=== PATIENT | male | born 1965 | race Hispanic/Latino ===

== ENCOUNTER 2016-10-27 22:30 | Inpatient (IN) | payer MEDICAID ==
--- NOTE | 2016-10-27 22:51 | ED PDOC ---
Arrival/HPI - General Chief Complaint: GI Problem Time Seen by Provider: 10/27/16 22:46 Historian: Patient - History of Present Illness Narrative History of Present Illness (Text): 10/27/16 22:51 Ishmael Dickey is a 51 year old male, whose past medical history includes kidney stones, who presents to the Emergency department complaining of lower abdominal pain radiating to back since 15:00 today. Patient also reports associated nausea and vomiting. Patient states symptoms are similar to previous episodes of kidney stones. Patient denies any fever, chills, chest pain, shortness of breath, diarrhea, urinary symptoms, back pain, neck pain, headache, dizziness, or any other complaints. Time/Duration: 4-6 hours (15:00 today) Symptom Onset: Gradual Symptom Course: Unchanged Activities at Onset: Light Context: Home Past Medical History - Provider Review Nursing Documentation Reviewed: Yes - Infectious Disease Hx of Infectious Diseases: None - Tetanus Immunization Tetanus Immunization: Unknown - Cardiac Hx Hypertension: Yes - Pulmonary Hx Asthma: No Hx Bronchitis: No Hx Chronic Obstructive Pulmonary Disease (COPD): No Hx Emphysema: No - Neurological Hx Alzheimer's Disease: No HX Cerebrovascular Accident: No Hx Dementia: No Hx Migraine: No Hx Parkinson's Disease: No Hx Seizures: No Hx Transient Ischemic Attacks (TIA): No - HEENT Hx HEENT Disorder: No Hx Blind: No Hx Cataracts: No Hx Deafness: No Hx Difficulty Chewing: No Hx Epistaxis: No Hx Glaucoma: No Hx Macular Degeneration: No - Renal Hx Renal Failure: No - Endocrine/Metabolic Hx Hyperthyroidism: No Hx Hypothyroidism: No - Hematological/Oncological Hx Anemia: No Hx Cancer: No Hx Hepatitis A: No Hx Hepatitis B: No Hx Hepatitis C: No - Integumentary Hx Dermatological Disorder: No Hx Basal Cell Carcinoma: No Hx Eczema: No Hx Melanoma: No Hx Psoriasis: No Hx Squamous Cell Carcinoma: No - Musculoskeletal/Rheumatological Hx Arthritis: No - Gastrointestinal Hx Crohn's Disease: No Hx Diverticulitis: No Hx Gastroesophageal Reflux: No Hx Gastrointestinal Ulcer: Yes Hx Liver Failure: No - Genitourinary/Gynecological Hx Genitourinary Disorders: No Hx Hematuria: No Hx Incontinence: No Hx Prostate Problems: No Hx Sexually Transmitted Diseases: No Hx Urinary Tract Infection: No - Psychiatric Hx Depression: No Hx Emotional Abuse: No Hx Physical Abuse: No Hx Substance Use: Yes - Surgical History Hx Amputation: No Hx Appendectomy: No Hx Cholecystectomy: No Hx Coronary Stent: No - Anesthesia Hx Anesthesia: No - Suicidal Assessment Feels Threatened In Home Enviroment: No Family/Social History - Physician Review Nursing Documentation Reviewed: Yes Family/Social History: No Known Family HX Smoking Status: Current Some Days Smoker Hx Alcohol Use: Yes Hx Substance Use: Yes Hx Substance Use Treatment: Yes Allergies/Home Meds Allergies/Adverse Reactions: Allergies No Known Allergies Allergy (Verified 12/07/12 21:48) Home Medications: Home Meds Medication Instructions Recorded Confirmed Lisinopril 10 mg PO DAILY 04/23/13 10/27/16 Atorvastatin [Lipitor] 20 mg PO DAILY 08/15/15 10/27/16 Morphine Sulfate [Ms Contin] 30 mg PO DAILY 10/27/16 10/27/16 oxyCODONE [oxyCODONE Immediate 30 mg PO QID 10/27/16 10/27/16 Release Tab] Review of Systems - Physician Review All systems were reviewed & negative as marked: Yes - Review of Systems Constitutional: Normal. absent: Fevers Eyes: Normal ENT: Normal Respiratory: Normal. absent: SOB, Cough Cardiovascular: Normal Gastrointestinal: Abdominal Pain, Nausea, Vomiting. absent: Diarrhea Genitourinary Male: Normal. absent: Dysuria, Frequency, Hematuria, Urinary Output Changes Musculoskeletal: Back Pain. absent: Neck Pain Skin: Normal. absent: Rash Neurological: Normal. absent: Headache, Dizziness Endocrine: Normal Hemo/Lymphatic: Normal Psychiatric: Normal Physical Exam Vital Signs Reviewed: Yes Vital Signs Temp Pulse Resp BP Pulse Ox 10/27/16 22:49 97.4 F L 70 18 180/102 H 100 Temperature: Afebrile Blood Pressure: Hypertensive Pulse: Regular Respiratory Rate: Normal Appearance: Positive for: Well-Appearing, Non-Toxic, Comfortable Pain Distress: None Mental Status: Positive for: Alert and Oriented X 3 - Systems Exam Head: Present: Atraumatic, Normocephalic Pupils: Present: PERRL Extroacular Muscles: Present: EOMI Conjunctiva: Present: Normal Mouth: Present: Moist Mucous Membranes Neck: Present: Normal Range of Motion Respiratory/Chest: Present: Clear to Auscultation, Good Air Exchange. No: Respiratory Distress, Accessory Muscle Use Cardiovascular: Present: Regular Rate and Rhythm, Normal S1, S2. No: Murmurs Abdomen: Present: Normal Bowel Sounds. No: Tenderness, Distention, Peritoneal Signs Back: Present: Normal Inspection. No: CVA Tenderness, Midline Tenderness, Paraspinal Tenderness Upper Extremity: Present: Normal Inspection. No: Cyanosis, Edema Lower Extremity: Present: Normal Inspection. No: Edema Neurological: Present: GCS=15, CN II-XII Intact, Speech Normal Skin: Present: Warm, Dry, Normal Color. No: Rashes Psychiatric: Present: Alert, Oriented x 3, Normal Insight, Normal Concentration Medical Decision Making ED Course and Treatment: 10/27/16 22:51 Impression: 51 year old male complaining of lower abdominal pain radiating to back, nausea, and vomiting Plan: -- CT Abdomen and Pelvis w/o contrast -- EKG -- Labs, lipase -- Urinalysis -- IV fluids -- Toradol -- Zofran -- Reassess and disposition Prior Visits: Notes and results from previous visits were reviewed. Progress Notes: Reviewed EKG, NSR at [address]pm[address] LVH. Non-specific ST/T wave changes. 10/28/16 00:55 Reviewed radiology, CT Abdomen and Pelvis shows: Bilateral nonobstructing renal stones, no ureteral stones or hydronephrosis; fatty liver; possible gallstones; 5 mm left lower lobe pulmonary nodule, nodule has been described in multiple prior reports dating back to 2013 Additional findings as described above. 10/28/16 01:[address] 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 House physician notified. 10/28/16 01:[address] Eloina Liu, who is aware and agrees with plan. Accepts pt in to hospitalist service. Pt will go to [facility] observation for intractable nausea/vomiting. - Lab Interpretations Lab Results: 10/27/16 23:40 10/27/16 23:40 Lab Results 10/27/16 23:40: WBC 6.0, RBC 4.54, Hgb 15.0, Hct 41.4 L, MCV 91.2, MCH 33.0, MCHC 36.2, RDW 12.6, Plt Count 250, MPV 10.1 10/27/16 23:40: Sodium 135, Potassium 4.3, Chloride 100, Carbon Dioxide 20 L, Anion Gap 19, BUN 9, Creatinine 0.7, Est GFR ( Amer) > 60, Est GFR (Non- Af Amer) > 60, Random Glucose 131 H, Calcium 10.1, Total Bilirubin 1.0, AST 69 H , ALT 126 H, Alkaline Phosphatase 81, Total Protein 8.7 H, Albumin 4.9 H, Globulin 3.8, Albumin/Globulin Ratio 1.3, Lipase 83 I have reviewed the lab results: Yes - RAD Interpretation Radiology Orders: 10/27/16 22:53 ABD & PELVIS W/O PO OR IV CONT [CT] 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 - EKG Interpretation Interpreted by ED Physician: Yes Type: 12 lead EKG - Medication Orders Current Medication Orders: Atorvastatin Calcium (Lipitor) 20 mg PO 1700 [facility] Last Admin: 10/28/16 17:32 Dose: 20 mg Clonidine HCl (Catapres) 0.1 mg PO BID PRN PRN Reason: Systolic Blood Pressure Dextrose/Sodium Chloride (Dextrose 5%/0.9% Ns 1000 Ml) 1,000 mls @ 125 mls/hr IV .Q8H [facility] Last Admin: 10/28/16 12:07 Dose: 125 mls/hr Lisinopril (Zestril) 10 mg PO DAILY J[facility] Lorazepam (Ativan) 1 mg IVP Q4H PRN; Protocol PRN Reason: Anxiety Last Admin: 10/28/16 14:06 Dose: 1 mg Re-Assess: Reassess Psych Meds Document 10/28/16 14:36 NB (Rec: 10/28/16 15:36 NB [id number]) Reassess Psych Med Ineffective-LIP notifed Lorazepam (Ativan) 2 mg IVP Q6H PRN; Protocol PRN Reason: Anxiety Ondansetron HCl (Zofran Inj) 4 mg IVP Q4 [facility] Last Admin: 10/28/16 16:36 Dose: 4 mg Pantoprazole Sodium (Protonix Inj) 40 mg IVP DAILY [facility] Last Admin: 10/28/16 09:57 Dose: 40 mg Promethazine HCl (Phenergan Inj) 25 mg IM Q6H PRN PRN Reason: Nausea/Vomiting Last Admin: 10/28/16 05:52 Dose: 25 mg Discontinued Medications Clonidine HCl (Catapres) 0.1 mg PO STAT STA Stop: 10/28/16 15:58 Last Admin: 10/28/16 16:36 Dose: 0.1 mg Diphenhydramine HCl (Benadryl) 25 mg IVP ONCE ONE Stop: 10/28/16 00:58 Last Admin: 10/28/16 01:08 Dose: 25 mg Hydromorphone HCl (Dilaudid) 1 mg IVP STAT STA Stop: 10/28/16 01:05 Last Admin: 10/28/16 02:04 Dose: 1 mg Hydromorphone HCl (Dilaudid) 1 mg IVP Q4H PRN PRN Reason: Pain, severe (8-10) Last Admin: 10/28/16 07:05 Dose: 1 mg Sodium Chloride (Sodium Chloride 0.9%) 1,000 mls @ 999 mls/hr IV .Q1H1M STA Stop: 10/27/16 23:54 Last Admin: 10/27/16 23:43 Dose: 999 mls/hr Ketorolac Tromethamine (Toradol) 30 mg IVP ONCE ONE Stop: 10/27/16 22:55 Last Admin: 10/27/16 23:42 Dose: 30 mg Lorazepam (Ativan) 1 mg IVP ONCE ONE PRN Reason: Protocol Stop: 10/28/16 15:58 Last Admin: 10/28/16 16:35 Dose: 1 mg Metoclopramide HCl (Reglan) 10 mg IVP ONCE ONE Stop: 10/28/16 00:58 Last Admin: 10/28/16 01:08 Dose: 10 mg Ondansetron HCl (Zofran Inj) 4 mg IVP ONCE ONE Stop: 10/27/16 22:55 Last Admin: 10/27/16 23:43 Dose: 4 mg Ondansetron HCl (Zofran Inj) Confirm Administered Dose 4 mg .ROUTE .STK-MED ONE Stop: 10/27/16 23:51 Last Admin: 10/28/16 00:09 Dose: Ondansetron HCl (Zofran Inj) 4 mg IVP ONCE ONE Stop: 10/28/16 00:04 Last Admin: 10/28/16 00:08 Dose: 4 mg Ondansetron HCl (Zofran Inj) 4 mg IVP Q6H PRN PRN Reason: Nausea/Vomiting Last Admin: 10/28/16 05:01 Dose: 4 mg Pantoprazole Sodium (Protonix Inj) 40 mg IVP STAT STA Stop: 10/28/16 02:40 Last Admin: 10/28/16 03:19 Dose: 40 mg - Maritzaibvira Statement The provider has reviewed the documentation as recorded by the Maritzaibvira Schreiber All medical record entries made by the Maritzaibvira were at my direction and personally dictated by me. I have reviewed the chart and agree that the record accurately reflects my personal performance of the history, physical exam, medical decision making, and the department course for this patient. I have also personally directed, reviewed, and agree with the discharge instructions and disposition. Disposition/Present on Arrival - Present on Arrival Any Indicators Present on Arrival: No History of DVT/PE: No History of Uncontrolled Diabetes: No Urinary Catheter: No History of Decub. Ulcer: No History Surgical Site Infection Following: None - Disposition Have Diagnosis and Disposition been Completed?: Yes Diagnosis: Abdominal pain, Flank pain, Intractable vomiting Disposition: HOSPITALIZED Disposition Time: 01:17 Patient Plan: Observation Patient Problems: Current Active Problems Problem Status Onset Abdominal pain Acute Flank pain Acute Intractable vomiting Acute Condition: STABLE
[2016-10-27] MEDS ORDERED: Sodium Chloride 0.9% 1,000 ML IV STA (22:54)
[2016-10-27 23:54] LABS: HEMATOCRIT 41.4 % (42.0-52.0); MEAN CELL VOLUME 91.2 fL (80.0-105.0); MEAN CORPUSCULAR HGB CONC 36.2 g/dl (31.0-37.0); MEAN PLATELET VOLUME 10.1 fl (7.0-11.0); RED CELL DISTRIBUTION WIDTH 12.6 % (11.5-14.5)
[2016-10-27 23:58] LABS: ALB/GLOB RATIO 1.3 (1.1-1.8); ALKALINE PHOSPHATASE 81 U/L (38-133); ALT/SGPT 126 U/L (7-56); AST/SGOT 69 U/L (15-59); BLOOD UREA NITROGEN 9 mg/dL (7-21); CALCIUM 10.1 mg/dL (8.4-10.5); CARBON DIOXIDE 20 mmol/L (21-33); CHLORIDE 100 mmol/L (95-110); GFR AFRICAN-AMERICAN > 60; GLUCOSE,RANDOM 131 mg/dL (70-110); LIPASE 83 U/L (23-300); POTASSIUM 4.3 mmol/L (3.6-5.0); SODIUM 135 mmol/L (132-148); TOTAL PROTEIN 8.7 g/dL (5.8-8.3)
--- NOTE | 2016-10-28 00:49 | CT ---
EXAM: CT Abdomen and Pelvis Without Intravenous Contrast CLINICAL HISTORY: 51 years old, male; Pain; Abdominal pain; Generalized; Additional info: Flank pain/abdominal pain TECHNIQUE: Axial computed tomography images of the abdomen and pelvis without intravenous contrast. This CT exam was performed using one or more of the following dose reduction techniques: automated exposure control, adjustment of the mA and/or kV according to patient size, and/or use of iterative reconstruction technique. Coronal and sagittal reformatted images were created and reviewed. EXAM DATE/TIME: 10/27/2016 10:53 PM COMPARISON: CT - ABD PELVIS W/O PO or IV CONT 09/28/2011 7:18:[address] abdomen pelvis 06/05/13, 04/23/13 and 03/31/13 not available comparison. Correlation is made with report dated 03/31/13 FINDINGS: Lower thorax: Heart size is normal. There is dependent atelectasis at the lung bases. There is scarring at the lung bases. There is a 5 mm left lower lobe pulmonary nodule. There is a small hiatal hernia. ABDOMEN: Liver: There is fatty infiltration of the liver. Gallbladder and bile ducts: Gallbladder is partially distended. Attenuation suggest gallstones or sludge. Common bile duct is unremarkable. Pancreas: Pancreas is mildly atrophic. Spleen: unremarkable Adrenals: There is adrenal thickening right greater than left. Kidneys and ureters: There are bilateral nonobstructing renal stones. There are no ureteral stones. There is no pelvocaliectasis or ureterectasis. Stomach and bowel: Stomach is partially distended. Rotation is normal. There is no obstruction. Small bowel is mildly distended with air and fluid. Distention decreases distally. Terminal ileum is unremarkable. Appendix is unremarkable.Colon is incompletely distended which limits evaluation. Appendix: See stomach and bowel PELVIS: Bladder: unremarkable Reproductive: Prostate is mildly enlarged. Seminal vesicles are unremarkable. ABDOMEN and PELVIS: Intraperitoneal space: There is no free air or free fluid. Bones/joints: There are degenerative changes in the osseus structures. Soft tissues: unremarkable Vasculature: There are vascular calcifications. There are multiple phleboliths in the pelvis. Lymph nodes: There is shotty adenopathy. IMPRESSION: Bilateral nonobstructing renal stones, no ureteral stones or hydronephrosis; fatty liver; possible gallstones; 5 mm left lower lobe pulmonary nodule, nodule has been described in multiple prior reports dating back to 2013 Additional findings as described above.
[2016-10-28] MEDS ORDERED: DiphenhydrAMINE 50 mg/ml Inj IVP ONE (00:57)
[2016-10-28] MEDS ORDERED: HYDROmorphone 1 mg/ml ISec IVP STA (01:04)
[2016-10-28] MEDS ORDERED: HYDROmorphone 1 mg/ml ISec IVP PRN (02:33)
[2016-10-28] MEDS: Dextrose 5%/0.9% NS 1,000 ML IV SCH ×3 (02:36→20:25)
--- NOTE | 2016-10-28 02:40 | CP.PCM.HP ---
<Pranay Degroot - Last Filed: 10/28/16 02:35> History of Present Illness - History of Present Illness History of Present Illness: Pranay Degroot D.O. PGY-1, Internal Medicine Resident, Night Float Admission Note CC: nausea and intractable vomiting since 3pm 10/27/16 51 year old male with a PMH of drug abuse per chart review and nephrolithiasis who [place] [facility] [place] with complaints of intractable vomiting. Patient states that it came out of nowhere, was not associated with any food ingestion, and has continued to get worse since then, associated with abdominal pain that he states is diffuse, 10/10, actively writhing in pain, with two buckets of bilious but non-bloody emesis at bedside, noted no aggravating or alleviating factors, also has associated "cold/hot feeling." Patient states only other time he's had similar symptoms was due to his kidney stone which was about 1 year ago. Patient otherwise denies any other symptoms. PMD: denied PMH: as above PSH: lithotripsy SH: 1ppd x ~30 years for 30 pack years, "sporadic" alcohol, denied drug abuse FH: denied Meds: reviewed Allergies: NKA Present on Admission - Present on Admission Any Indicators Present on Admission: No Review of Systems - Constitutional Constitutional: Chills, Fever - EENT Eyes: absent: Blind Spots, Blurred Vision Ears: absent: Decreased Hearing, Ear Discharge, Ear Pain, Tinnitus Nose/Mouth/Throat: absent: Epistaxis, Nasal Trauma, Dry Mouth - Cardiovascular Cardiovascular: absent: Chest Pain, Leg Edema, Palpitations - Respiratory Respiratory: absent: Cough, Dyspnea, Hemoptysis - Gastrointestinal Gastrointestinal: Abdominal Pain, Nausea, Vomiting. absent: Constipation, Diarrhea - Genitourinary Genitourinary: absent: Dysuria, Hematuria - Musculoskeletal Musculoskeletal: absent: Abnormal Gait, Arthralgias, Atrophy - Integumentary Integumentary: absent: Pruritus, Rash, Unusual Bruising - Neurological Neurological: absent: Abnormal Speech, Convulsions, Dizziness, Memory Loss Past Patient History - Infectious Disease Hx of Infectious Diseases: None - Tetanus Immunizations Tetanus Immunization: Unknown - Past Social History Smoking Status: Current Some Days Smoker - CARDIAC Hx Hypertension: Yes - PULMONARY Hx Asthma: No Hx Bronchitis: No Hx Chronic Obstructive Pulmonary Disease (COPD): No Hx Emphysema: No - NEUROLOGICAL Hx Alzheimer's Disease: No HX Cerebrovascular Accident: No Hx Dementia: No Hx Migraine: No Hx Parkinson's Disease: No Hx Seizures: No Hx Transient Ischemic Attacks (TIA): No - HEENT Hx HEENT Problems: No Hx Blind: No Hx Cataracts: No Hx Deafness: No Hx Difficulty Chewing: No Hx Epistaxis: No Hx Glaucoma: No Hx Macular Degeneration: No - RENAL Hx Renal Failure: No - ENDOCRINE/METABOLIC Hx Hyperthyroidism: No Hx Hypothyroidism: No - HEMATOLOGICAL/ONCOLOGICAL Hx Anemia: No Hx Cancer: No Hx Hepatitis A: No Hx Hepatitis B: No Hx Hepatitis C: No - INTEGUMENTARY Hx Dermatological Problems: No Hx Basil Cell: No Hx Eczema: No Hx Melanoma: No Hx Psoriasis: No Hx Squamous Cell: No - MUSCULOSKELETAL/RHEUMATOLOGICAL Hx Arthritis: No - GASTROINTESTINAL Hx Crohn's Disease: No Hx Diverticulitis: No Hx Gastroesophageal Reflux: No Hx Liver Failure: No - GENITOURINARY/GYNECOLOGICAL Hx Genitourinary Disorders: No Hx Hematuria: No Hx Incontinence: No Hx Prostate Problems: No Hx Sexually Transmitted Disorders: No Hx Urinary Tract Infection: No - PSYCHIATRIC Hx Depression: No Hx Emotional Abuse: No Hx Physical Abuse: No Hx Substance Use: Yes - SURGICAL HISTORY Hx Amputation: No Hx Appendectomy: No Hx Cholecystectomy: No Hx Coronary Stent: No - ANESTHESIA Hx Anesthesia: No Meds Allergies/Adverse Reactions: Allergies Allergy/AdvReac Type Severity Reaction Status Date / Time No Known Allergies Allergy Verified 12/07/12 21:48 Physical Exam - Constitutional Additional comments: well developed, unkempt, well nourished male, appears older than stated age, appears tremulous - Head Exam Head Exam: ATRAUMATIC - Eye Exam Eye Exam: EOMI, PERRL - ENT Exam ENT Exam: Mucous Membranes Dry, Normal Oropharynx - Neck Exam Neck exam: Negative for: Lymphadenopathy, Meningismus, Thyromegaly - Respiratory Exam Respiratory Exam: Clear to Auscultation Bilateral. absent: Rales, Rhonchi, Wheezes - Cardiovascular Exam Cardiovascular Exam: RRR, +S1, +S2. absent: Diastolic murmur, Gallop, Rubs, Systolic Murmur - GI/Abdominal Exam GI & Abdominal Exam: Guarding (voluntary diffuse), Normal Bowel Sounds, Tenderness (diffuse). absent: Distended - Extremities Exam Extremities exam: Positive for: normal capillary refill, pedal pulses present. Negative for: calf tenderness, pedal edema, tenderness - Back Exam Back exam: absent: CVA tenderness (L), CVA tenderness (R), paraspinal tenderness , vertebral tenderness - Neurological Exam Neurological exam: Alert, Oriented x3 - Skin Skin Exam: Dry, Intact, Warm Results - Vital Signs Recent Vital Signs: Last Vital Signs Temp 97.4 F L 10/27/16 22:49 Pulse 70 10/27/16 22:49 Resp 18 10/27/16 22:49 BP 180/102 H 10/27/16 22:49 Pulse Ox 100 10/27/16 22:49 - Labs Result Diagrams: 10/27/16 23:40 10/27/16 23:40 Assessment & Plan - Assessment and Plan (Free Text) Assessment: 51 year old male with a PMH of drug abuse per chart review and nephrolithiasis who presents with complaints of intractable vomiting. Plan: 1. Intractable vomiting Placed in obs Likely 2/2 drug abuse vs GB etiology vs nephrolithiasis (although unlikely nephrolithiasis, stones are non-obstructing) Continue with dilaudid 1q4 PRN No NSAIDs due to GI issues Continue with protonix 40 CT abd and pelvis reviewed by myself as well as official read Will consult GI given GB sludge and hold from surgery at this time as not indicated Continue with PRN zofran Also back up IM promethazine PRN Monitoring closely Will get lipid and liver panel and follow up tomorrow AM 2. Transaminitis Possibly from vomiting vs GB disease as mentioned above vs alcohol related vs drug related Pending drug screen GI consulted 3. Hx of substance abuse Will also order urine drug screen DVT ppx: SCDs Patient was seen and examined at bedside and case was discussed at length with attending physician. - Date & Time Date: 10/28/16 Time: 02:15 <Huy Liu - Last Filed: 10/30/16 18:54> Results - Vital Signs Recent Vital Signs: Last Vital Signs Temp 97.9 F 10/30/16 00:00 Pulse 75 10/30/16 10:00 Resp 22 10/30/16 05:20 BP 152/75 H 10/30/16 17:25 Pulse Ox 100 10/30/16 05:20 - Labs Result Diagrams: 10/30/16 05:35 10/30/16 05:35 Labs: Laboratory Results - last 24 hr 10/30/16 10/30/16 05:35 05:35 WBC 8.2 D RBC 4.88 Hgb 16.1 Hct 44.8 MCV 91.8 MCH 33.0 MCHC 35.9 RDW 12.2 Plt Count 190 MPV 10.4 Gran % 71.6 H Lymph % (Auto) 19.0 L [place] % (Auto) 9.2 H Eos % (Auto) 0.1 L Baso % (Auto) 0.1 Gran # 5.86 Lymph # 1.6 [place] # 0.8 H Eos # 0.0 Baso # 0.01 Sodium 139 Potassium 3.1 L Chloride 101 Carbon Dioxide 26 Anion Gap 15 BUN 15 Creatinine 0.6 Est GFR ( Amer) > 60 Est GFR (Non-Af Amer) > 60 Random Glucose 127 H Calcium 9.7 Phosphorus 4.1 Magnesium 2.1 Total Bilirubin 1.6 H AST 50 ALT 93 H Alkaline Phosphatase 61 Total Protein 8.2 Albumin 4.5 Globulin 3.7 Albumin/Globulin Ratio 1.2
[2016-10-28 04:35] LABS: URINE BILIRUBIN NEGATIVE (NEGATIVE); URINE BLOOD NEGATIVE (NEGATIVE); URINE GLUCOSE (UA) NEGATIVE (NEGATIVE); URINE KETONE 40 mg/dL (NEGATIVE); URINE LEUKOCYTE ESTERASE NEGATIVE Leu/uL (NEGATIVE); URINE PROTEIN TRACE mg/dL (<30 mg/dL); URINE UROBILINOGEN 0.2 E.U./dL (<1 E.U./dL)
[2016-10-28 04:41] LABS: URINE APPEARANCE CLEAR (CLEAR); URINE COLOR YELLOW (YELLOW)
[2016-10-28 05:00] VITALS: BMI 24.4
[2016-10-28 05:09] LABS: URINE EPITHELIAL CELLS 0 - 2 /hpf (0-5); URINE RBC 0 - 2 /hpf (0-2); URINE WBC 0 - 2 /hpf (0-6)
[2016-10-28 07:13] LABS: ALB/GLOB RATIO 1.3 (1.1-1.8); BILIRUBIN,DIRECT 0.5 mg/dL (0.0-0.4); BILIRUBIN,TOTAL 1.2 mg/dL (0.2-1.3); TOTAL PROTEIN 8.6 g/dL (5.8-8.3)
--- NOTE | 2016-10-28 11:23 | US ---
HISTORY: r/o gall stones COMPARISON: None. TECHNIQUE: Sonographic evaluation of the abdomen. FINDINGS: LIVER: Measures 15.7 x 11.2 x 10.8 cm. Increased echogenicity of the liver parenchyma. No mass. No intrahepatic bile duct dilatation. GALLBLADDER: Unremarkable. No gallstones. COMMON BILE DUCT: Measures 5 mm. No stones. No dilatation. PANCREAS: Unremarkable as visualized. No mass. No ductal dilatation. RIGHT KIDNEY: Measures 12.7 x 4.8 x 6.2cm. Normal echogenicity. No calculus, mass, or hydronephrosis. LEFT KIDNEY: Measures 13.2 x 6.1 x 6.5cm. Normal echogenicity. No calculus, mass, or hydronephrosis. SPLEEN: Normal in size and contour. No mass. AORTA: No aneurysmal dilatation. IVC: Unremarkable. OTHER FINDINGS: None. IMPRESSION: No gallbladder pathology noted. Diffuse increased liver echogenicity -diffuse fatty infiltration or other liver diffuse parenchymal pathology suggested.
[2016-10-28] MEDS ORDERED: LISINOPRIL 10 MG PO SCH (13:45)
--- NOTE | 2016-10-28 19:43 | CON ---
DATE: 10/28/2016 Seen and examined at the bedside earlier this afternoon. REQUEST FOR CONSULT: Intractable vomiting, gallbladder sludge. HISTORY OF PRESENT ILLNESS: This is a 51-year-old male with a past medical history of hypertension, hyperlipidemia who comes to the Emergency Room with complaints of intractable vomiting. The patient states it was a sudden onset that started yesterday. He recalls having a bagel from the bagel store. He denies any hematemesis or any coffee-ground vomitus. He does not recall any other contributing factors. He states that he had numerous vomitus, complaint of abdominal discomfort. Does not compla in of any fevers, but does complain of chills. He had a CT scan of abdomen and pelvis without contra st on admission, which reports bilateral nonobstructing renal stones, possible gallstones and fatty l iver and sludge. PAST MEDICAL HISTORY: As stated above, hypertension and hyperlipidemia. Per chart, patient has hist ory of drug abuse. PAST SURGICAL HISTORY: Lithotripsy. The patient states he had an endoscopy about 6 months ago at [facility] and was found to have gastritis. Never had a colonoscopy. FAMILY HISTORY: Denies. SOCIAL HISTORY: The patient is a current smoker. He states he drinks alcohol socially. His last in take was 3 days ago. He had beer. Denies any substance abuse. ALLERGIES: No known drug allergies. MEDICATIONS: Reviewed as per MAR. REVIEW OF SYSTEMS: Systems reviewed with positive findings, see HPI. VITAL SIGNS: Temperature is 99, blood pressure is 179/100, his pulse is 75, respirations 20, 97 on r oom air. LABORATORY DATA: WBC is 6.0, H and H is 15.0 and 41.4, platelets are 250. Chem: Sodium 135, K is 4. 3, BUN 9, creatinine 0.7. Total bilirubin 1.2, direct bilirubin is 0.6, AST 64, ALT 112, alkaline ph osphatase is 62. Lipase on admission was 83. Opiate screen is positive. His ultrasound was done an d that showed no gallstones. CBD measured 5 mm. No stones or dilatation. Pancreas was unremarkable. There is diffuse increased liver echogenicity, diffuse fatty liver or other liver diffuse parenchym al pathology suggested. A CT scan without contrast shows bilateral nonobstructing renal stones, no u reteral stones or hydronephrosis, fatty liver, possible gallstones. A 5 mm left lower lobe pulmonary nodule. Nodule has been described in multiple prior reports dating back to 2013. There is no stoma ch and bowel obstruction. Mildly distended with air and fluid. Terminal ileum is unremarkable. True endix is unremarkable. PHYSICAL EXAMINATION: HEENT: Sclerae are anicteric. NECK: Supple. CARDIAC: S1, S2. LUNGS: Decreased breath sounds with positive air entry. No rales or wheeze. NEUROLOGIC: Awake, alert. Face is flushed. Note some mild hand tremors. ASSESSMENT: This is a 51-year-old male with a history of hypertension, hyperlipidemia, came with com plaints of intractable vomiting, history of drug abuse, transaminitis. The patient is status post ul trasound. Negative for gallstones, common bile duct is 5 mm, possible fatty liver. Noted to have tr ansaminitis. May be secondary to gallbladder disease, although ultrasound showing no stones. May be related to alcohol versus drugs. PLAN: Trend LFTs. We will request for hepatitis panel. The patient is pending urine alcohol and dr law screen. Agree with clear liquid diet for now. Continue IV fluids. The patient is on Catapres. H e is on Ativan p.r.n. Continue PPI and Zofran. Thank you for this consult and allowing us to participate in your patient's care. We will make [facility] recommendations based upon patient's clinical course. The patient was seen and case discussed jax Quinn. Tiffanie MEDRANO cc: [id number] TT: 10/28/2016 19:42:34 Confirmation # [id number] Dictation # [id number] meryl
--- NOTE | 2016-10-28 21:49 | CARD ---
APPROVED REPORT EKG Measurement Heart [id number] CT 130P72 [id number] <Conclusion> Normal sinus rhythm with sinus arrhythmia Minimal voltage criteria for LVH, may be normal variant Prolonged QT Abnormal ECG
[2016-10-29] MEDS: Dexmedetomidine HCl 4mcg/ml 400 MCG/100 ML BOTTLE IV PRN ×2 (02:13→20:29)
[2016-10-29] MEDS: Dextrose 5%/0.9% NS 1,000 ML IV SCH ×2 (02:31→10:00)
--- NOTE | 2016-10-29 03:38 | CP.PCM.CON ---
<Daniel Cameron - Last Filed: 10/29/16 03:28> History of Present Illness - History of Present Illness History of Present Illness: ICU NIGHT RESIDENT CONSULT NOTE HPI: Pt is a 51 year old Caucaisan male with a PMHx of substance abuse who presented to the ED with intractable vomiting. ICU was consulted because pt was agitated, confused, and trying to break through leather restraints due to alcohol withdrawal. Pt had a CIWA score of 36 on the floors. ROS limited due to pt being confused and combative on the floors. Pt accepted and transferred to ICU. History unattainable due to pt being confused and agitated/ Review of Systems - Review of Systems Systems not reviewed;Unavailable: Altered Mental Status, Uncooperative Past Patient History - Infectious Disease Hx of Infectious Diseases: None - Tetanus Immunizations Tetanus Immunization: Unknown - Past Social History Smoking Status: Current Some Days Smoker - CARDIAC Hx Hypertension: Yes - PULMONARY Hx Asthma: No Hx Bronchitis: No Hx Chronic Obstructive Pulmonary Disease (COPD): No Hx Emphysema: No - NEUROLOGICAL Hx Alzheimer's Disease: No HX Cerebrovascular Accident: No Hx Dementia: No Hx Migraine: No Hx Parkinson's Disease: No Hx Seizures: No Hx Transient Ischemic Attacks (TIA): No - HEENT Hx HEENT Problems: No Hx Blind: No Hx Cataracts: No Hx Deafness: No Hx Difficulty Chewing: No Hx Epistaxis: No Hx Glaucoma: No Hx Macular Degeneration: No - RENAL Hx Renal Failure: No - ENDOCRINE/METABOLIC Hx Hyperthyroidism: No Hx Hypothyroidism: No - HEMATOLOGICAL/ONCOLOGICAL Hx Anemia: No Hx Cancer: No Hx Hepatitis A: No Hx Hepatitis B: No Hx Hepatitis C: No - INTEGUMENTARY Hx Dermatological Problems: No Hx Basil Cell: No Hx Eczema: No Hx Melanoma: No Hx Psoriasis: No Hx Squamous Cell: No - MUSCULOSKELETAL/RHEUMATOLOGICAL Hx Arthritis: No - GASTROINTESTINAL Hx Crohn's Disease: No Hx Diverticulitis: No Hx Gastroesophageal Reflux: No Hx Liver Failure: No - GENITOURINARY/GYNECOLOGICAL Hx Genitourinary Disorders: No Hx Hematuria: No Hx Incontinence: No Hx Prostate Problems: No Hx Sexually Transmitted Disorders: No Hx Urinary Tract Infection: No - PSYCHIATRIC Hx Depression: No Hx Emotional Abuse: No Hx Physical Abuse: No Hx Substance Use: Yes - SURGICAL HISTORY Hx Amputation: No Hx Appendectomy: No Hx Cholecystectomy: No Hx Coronary Stent: No - ANESTHESIA Hx Anesthesia: No Meds Allergies/Adverse Reactions: Allergies Allergy/AdvReac Type Severity Reaction Status Date / Time No Known Allergies Allergy Verified 12/07/12 21:48 - Medications Medications: Current Medications Atorvastatin Calcium (Lipitor) 20 mg PO 1700 [facility] Last Admin: 10/28/16 17:32 Dose: 20 mg Clonidine HCl (Catapres) 0.1 mg PO BID PRN PRN Reason: Systolic Blood Pressure Dextrose/Sodium Chloride (Dextrose 5%/0.9% Ns 1000 Ml) 1,000 mls @ 125 mls/hr IV .Q8H [facility] Last Admin: 10/29/16 02:31 Dose: 125 mls/hr Dexmedetomidine HCl (Precedex 4 Mcg/Ml (100 Ml)) 400 mcg in 100 mls @ 4.196 mls /hr IV .[id number] PRN; Protocol; 0.2 MCG/KG/HR PRN Reason: Agitation Last Titration: 10/29/16 02:42 Dose: 0.6 mcg/kg/hr, 12.587 mls/hr Lisinopril (Zestril) 10 mg PO DAILY [facility] Lorazepam (Ativan) 1 mg IVP Q4H PRN; Protocol PRN Reason: Anxiety Last Admin: 10/28/16 23:35 Dose: 1 mg Lorazepam (Ativan) 2 mg IVP Q6H PRN; Protocol PRN Reason: Anxiety Last Admin: 10/28/16 20:46 Dose: 2 mg Ondansetron HCl (Zofran Inj) 4 mg IVP Q4 [facility] Last Admin: 10/29/16 00:44 Dose: 4 mg Pantoprazole Sodium (Protonix Inj) 40 mg IVP DAILY [facility] Last Admin: 10/28/16 09:57 Dose: 40 mg Promethazine HCl (Phenergan Inj) 25 mg IM Q6H PRN PRN Reason: Nausea/Vomiting Last Admin: 10/28/16 05:52 Dose: 25 mg Physical Exam - Constitutional Appears: Combative - Head Exam Head Exam: ATRAUMATIC, NORMOCEPHALIC - Eye Exam Eye Exam: EOMI - ENT Exam ENT Exam: Mucous Membranes Dry - Respiratory Exam Respiratory Exam: Clear to Auscultation Bilateral. absent: Rales, Rhonchi, Wheezes - GI/Abdominal Exam GI & Abdominal Exam: Soft - Extremities Exam Extremities exam: Negative for: pedal edema - Neurological Exam Neurological exam: Altered - Psychiatric Exam Psychiatric exam: Agitated - Skin Skin Exam: Normal Color, Warm Results - Vital Signs Recent Vital Signs: Last Vital Signs Temp 98.4 F 10/29/16 00:01 Pulse 92 H 10/29/16 02:50 Resp 27 H 10/29/16 02:50 BP 160/90 H 10/29/16 00:01 Pulse Ox 99 10/29/16 02:50 - Labs Result Diagrams: 10/27/16 23:40 10/27/16 23:40 Labs: Laboratory Results - last 24 hr 10/28/16 10/28/16 10/28/16 04:25 04:25 06:30 Total Bilirubin 1.2 Direct Bilirubin 0.5 H AST 64 H ALT 112 H Alkaline Phosphatase 62 Total Protein 8.6 H Albumin 4.8 Globulin 3.8 Albumin/Globulin Ratio 1.3 Triglycerides 71 Cholesterol 296 H LDL Cholesterol Direct 124 HDL Cholesterol 156 H Urine Color Yellow Urine Appearance Clear Urine pH 7.0 Ur Specific [place] 1.020 Urine Protein Trace H Urine Glucose (UA) Negative Urine Ketones 40 H Urine Blood Negative Urine Nitrate Negative Urine Bilirubin Negative Urine Urobilinogen 0.2 Ur Leukocyte Esterase Negative Urine RBC 0 - 2 Urine WBC 0 - 2 Ur Epithelial Cells 0 - 2 Urine Opiates Screen Positive H Urine Methadone Screen Negative Ur Barbiturates Screen Negative Ur Phencyclidine Scrn Negative Ur Amphetamines Screen Negative U Benzodiazepines Scrn Negative U Oth Cocaine Metabols Negative U Cannabinoids Screen Negative Hepatitis A IgM Ab Hep Bs Antigen Hep B Core IgM Ab Hepatitis C Antibody 10/28/16 16:40 Total Bilirubin Direct Bilirubin AST ALT Alkaline Phosphatase Total Protein Albumin Globulin Albumin/Globulin Ratio Triglycerides Cholesterol LDL Cholesterol Direct HDL Cholesterol Urine Color Urine Appearance Urine pH Ur Specific [place] Urine Protein Urine Glucose (UA) Urine Ketones Urine Blood Urine Nitrate Urine Bilirubin Urine Urobilinogen Ur Leukocyte Esterase Urine RBC Urine WBC Ur Epithelial Cells Urine Opiates Screen Urine Methadone Screen Ur Barbiturates Screen Ur Phencyclidine Scrn Ur Amphetamines Screen U Benzodiazepines Scrn U Oth Cocaine Metabols U Cannabinoids Screen Hepatitis A IgM Ab Negative Hep Bs Antigen Negative Hep B Core IgM Ab Negative Hepatitis C Antibody Negative Assessment & Plan - Assessment and Plan (Free Text) Assessment: Neuro: CIWA protocol Serum alcohol pending Tox screen positive for opiates Pt agitated and confused Pt started on precedex drip Ativan 1 mg IV q4h prn for agitation Ativan 2 mg IV q6h prn for agitation Head CT once pt stable GI: Abd/Pelvis CT - bilateral nonobstructing renal stones, no ureteral stones or hydronephrosis, fatty liver (please see full report) Abdomen ultrasound - diffuse fatty liver (please see full report) AST/ALT: 64/112 Hep panel negative GI, Dr. Quinn, consulted. Help appreciated. Phenergen prn for nausea and vomiting Lipitor 20 mg po qd Zofran 4 mg IV q4h prn for nausea Cardio: BP 160/90 HR - 92 EKG - prolonged QT interval, LVH (please see full report) Zestril 10 mg po qd Clonidine 0.1 mg po bid prn Prophylactic Measures: DVT: SCDs GI: Protonix 40 mg IV qd <Prem Flores MD - Last Filed: 11/04/16 04:42> Results - Vital Signs Recent Vital Signs: Last Vital Signs Temp 98.3 F 11/01/16 01:00 Pulse 80 11/01/16 07:51 Resp 18 11/01/16 01:00 BP 130/54 L 11/01/16 07:52 Pulse Ox 98 10/31/16 16:00 - Labs Result Diagrams: 11/01/16 05:00 11/01/16 05:00 Attending/Attestation - Attestation I have personally seen and examined this patient.: Yes I have fully participated in the care of the patient.: Yes I have reviewed all pertinent clinical information: Yes Notes (Text): 11/04/16 04:41 -I agree with the above consult H&P completed by the resident physician. -The patient will be upgraded to the ICU due to worsening acute ETOH w/d (i.e- DT's).
[2016-10-29 06:27] LABS: ADD MANUAL DIFF? NO
[2016-10-29 06:36] LABS: GRAN # 4.51 (1.4-6.5); GRAN % 72.2 % (50.0-68.0); HEMATOCRIT 41.3 % (42.0-52.0); LYMPH # 1.1 (1.2-3.4); LYMPH % 17.5 % (22.0-35.0); MEAN CELL VOLUME 92.4 fL (80.0-105.0); MEAN CORPUSCULAR HEMOGLOBIN 32.7 pg (25.0-35.0); MEAN CORPUSCULAR HGB CONC 35.4 g/dl (31.0-37.0); MEAN PLATELET VOLUME 10.4 fl (7.0-11.0); MONO # 0.6 (0.1-0.6); MONO % 10.3 % (1.0-6.0); PLATELET COUNT 214 10^3/uL (120.0-450.0); RED CELL DISTRIBUTION WIDTH 12.5 % (11.5-14.5); WHITE BLOOD COUNT 6.2 10^3/ul (4.5-11.0)
[2016-10-29 06:55] LABS: ALB/GLOB RATIO 1.2 (1.1-1.8); ALKALINE PHOSPHATASE 49 U/L (38-133); ALT/SGPT 85 U/L (7-56); AST/SGOT 49 U/L (15-59); BILIRUBIN,TOTAL 1.7 mg/dL (0.2-1.3); BLOOD UREA NITROGEN 10 mg/dL (7-21); CALCIUM 9.5 mg/dL (8.4-10.5); CARBON DIOXIDE 26 mmol/L (21-33); CHLORIDE 105 mmol/L (98-107); GFR AFRICAN-AMERICAN > 60; GLUCOSE,RANDOM 146 mg/dL (70-110); MAGNESIUM 2.4 mg/dL (1.7-2.2); POTASSIUM 3.6 mmol/L (3.6-5.0); SODIUM 140 mmol/L (132-148); TOTAL PROTEIN 7.8 g/dL (5.8-8.3)
--- NOTE | 2016-10-29 11:19 | CP.CCUPN ---
CCU Subjective - Physician Review Subjective (Free Text): Pt seen and examined at bedside. Pt transferred from the floors yesterday due to increasing agitation and was placed on a precedex drip. Pt remained agitated this morning, but was able to be redirected. Pt states he does feel better than last night and is more oriented. Denies CP, SOB, N/V/D. CCU Objective - Vital Signs / Intake & Output Intake and Output (Last 8hrs): Intake & Output 10/28/16 10/29/16 10/29/16 22:59 06:59 14:59 Intake Total 240 1480.0 Output Total 500 2175 Balance -260 -695.0 Weight 183 lb Intake: IV 1120.0 Left Antecubital 1100 Oral 240 360 Output: Urine 500 2175 Straight 500 2175 Other: Voiding Method Urinal # Voids Straight 3 # Bowel Movements 0 - Physical Exam Head: Positive for: Atraumatic, Normocephalic Pupils: Positive for: PERRL Extroacular Muscles: Positive for: EOMI Conjunctiva: Positive for: Normal Mouth: Positive for: Moist Mucous Membranes Neck: Positive for: Normal Range of Motion Respiratory/Chest: Positive for: Clear to Auscultation, Good Air Exchange. Negative for: Respiratory Distress, Accessory Muscle Use Cardiovascular: Positive for: Regular Rate and Rhythm, Normal S1, S2. Negative for: Murmurs Abdomen: Positive for: Normal Bowel Sounds. Negative for: Tenderness, Distention, Peritoneal Signs Back: Positive for: Normal Inspection. Negative for: CVA Tenderness, Midline Tenderness, Paraspinal Tenderness Upper Extremity: Positive for: Normal Inspection. Negative for: Cyanosis, Edema Lower Extremity: Positive for: Normal Inspection. Negative for: Edema Neurological: Positive for: GCS=15, CN II-XII Intact, Speech Normal Skin: Positive for: Warm, Dry, Normal Color. Negative for: Rashes Psychiatric: Positive for: Alert, Oriented x 3, Normal Insight, Normal Concentration - Medications Active Medications: Active Medications Generic Name Dose Route Start Last Admin Trade Name Freq PRN Reason Stop Dose Admin Atorvastatin Calcium 20 mg 10/28/16 17:00 10/28/16 17:32 Lipitor PO 20 mg 1700 JHOANA Administration Clonidine HCl 0.1 mg 10/28/16 15:57 Catapres PO BID PRN Systolic Blood Pressure Dextrose/Sodium Chloride 1,000 mls @ 125 mls/hr 10/28/16 02:00 10/29/16 02:31 Dextrose 5%/0.9% Ns 1000 Ml IV 125 mls/hr .Q8H JHOANA Administration Dexmedetomidine HCl 400 mcg in 100 mls @ 4.196 mls/hr 10/29/16 02:01 04:00 Precedex 4 Mcg/Ml (100 Ml) IV 0.5 mcg/kg/hr .[id number] PRN 10.489 mls/hr Agitation Titration Protocol 0.2 MCG/KG/HR Lisinopril 10 mg 10/29/16 10:00 Zestril PO DAILY JHOANA Lorazepam 1 mg 10/28/16 13:34 10/28/16 23:35 Ativan IVP 1 mg Q4H PRN Administration Anxiety Protocol Lorazepam 2 mg 10/28/16 16:37 10/28/16 20:46 Ativan IVP 2 mg Q6H PRN Administration Anxiety Protocol Ondansetron HCl 4 mg 10/28/16 08:00 10/29/16 04:05 Zofran Inj IVP 4 mg Q4 JHOANA Administration Pantoprazole Sodium 40 mg 10/28/16 10:00 10/28/16 09:57 Protonix Inj IVP 40 mg DAILY [facility]HOANA Administration Promethazine HCl 25 mg 10/28/16 02:52 10/28/16 05:52 Phenergan Inj IM 25 mg Q6H PRN Administration Nausea/Vomiting - Patient Studies Lab Studies: Lab Studies 10/29/16 10/29/16 10/29/16 Range/Units 06:00 06:00 06:00 WBC 6.2 (4.5-11.0) 10^3/ul RBC 4.47 (3.5-6.1) 10^6/uL Hgb 14.6 (14.0-18.0) gm/dL Hct 41.3 L (42.0-52.0) % MCV 92.4 (80.0-105.0) fL MCH 32.7 (25.0-35.0) pg MCHC 35.4 (31.0-37.0) g/dl RDW 12.5 (11.5-14.5) % Plt Count 214 (120.0-450.0) 10^3/uL MPV 10.4 (7.0-11.0) fl Gran % 72.2 H (50.0-68.0) % Lymph % (Auto) 17.5 L (22.0-35.0) % Mineral % (Auto) 10.3 H (1.0-6.0) % Eos % (Auto) 0.0 L (1.5-5.0) % Baso % (Auto) 0.0 (0.0-3.0) % Gran # 4.51 (1.4-6.5) Lymph # 1.1 L (1.2-3.4) Mineral # 0.6 (0.1-0.6) Eos # 0.0 (0.0-0.7) Baso # 0.00 (0.0-2.0) K/mm3 Sodium 140 (132-148) mmol/L Potassium 3.6 (3.6-5.0) mmol/L Chloride 105 (98-107) mmol/L Carbon Dioxide 26 (21-33) mmol/L Anion Gap 13 (10-20) BUN 10 (7-21) mg/dL Creatinine 0.7 (0.5-1.4) mg/dL Est GFR ( Amer) > 60 Est GFR (Non-Af Amer) > 60 Random Glucose 146 H (70-110) mg/dL Calcium 9.5 (8.4-10.5) mg/dL Magnesium 2.4 H (1.7-2.2) mg/dL Total Bilirubin 1.7 H (0.2-1.3) mg/dL AST 49 (15-59) U/L ALT 85 H (7-56) U/L Alkaline Phosphatase 49 (38-133) U/L Total Protein 7.8 (5.8-8.3) g/dL Albumin 4.3 (3.0-4.8) g/dL Globulin 3.5 gm/dL Albumin/Globulin Ratio 1.2 (1.1-1.8) Alcohol, Quantitative < 10 (0-10) mg/dL Hepatitis A IgM Ab (NEGATIVE) Hep Bs Antigen (NEGATIVE) Hep B Core IgM Ab (NEGATIVE) Hepatitis C Antibody (NEGATIVE) 10/28/16 Range/Units 16:40 WBC (4.5-11.0) 10^3/ul RBC (3.5-6.1) 10^6/uL Hgb (14.0-18.0) gm/dL Hct (42.0-52.0) % MCV (80.0-105.0) fL MCH (25.0-35.0) pg MCHC (31.0-37.0) g/dl RDW (11.5-14.5) % Plt Count (120.0-450.0) 10^3/uL MPV (7.0-11.0) fl Gran % (50.0-68.0) % Lymph % (Auto) (22.0-35.0) % Mineral % (Auto) (1.0-6.0) % Eos % (Auto) (1.5-5.0) % Baso % (Auto) (0.0-3.0) % Gran # (1.4-6.5) Lymph # (1.2-3.4) Mineral # (0.1-0.6) Eos # (0.0-0.7) Baso # (0.0-2.0) K/mm3 Sodium (132-148) mmol/L Potassium (3.6-5.0) mmol/L Chloride (98-107) mmol/L Carbon Dioxide (21-33) mmol/L Anion Gap (10-20) BUN (7-21) mg/dL Creatinine (0.5-1.4) mg/dL Est GFR ( Amer) Est GFR (Non-Af Amer) Random Glucose (70-110) mg/dL Calcium (8.4-10.5) mg/dL Magnesium (1.7-2.2) mg/dL Total Bilirubin (0.2-1.3) mg/dL AST (15-59) U/L ALT (7-56) U/L Alkaline Phosphatase (38-133) U/L Total Protein (5.8-8.3) g/dL Albumin (3.0-4.8) g/dL Globulin gm/dL Albumin/Globulin Ratio (1.1-1.8) Alcohol, Quantitative (0-10) mg/dL Hepatitis A IgM Ab Negative (NEGATIVE) Hep Bs Antigen Negative (NEGATIVE) Hep B Core IgM Ab Negative (NEGATIVE) Hepatitis C Antibody Negative (NEGATIVE) Laboratory Results - last 24 hr 10/28/16 10/29/16 10/29/16 16:40 06:00 06:00 WBC 6.2 RBC 4.47 Hgb 14.6 Hct 41.3 L MCV 92.4 MCH 32.7 MCHC 35.4 RDW 12.5 Plt Count 214 MPV 10.4 Gran % 72.2 H Lymph % (Auto) 17.5 L Mineral % (Auto) 10.3 H Eos % (Auto) 0.0 L Baso % (Auto) 0.0 Gran # 4.51 Lymph # 1.1 L Mineral # 0.6 Eos # 0.0 Baso # 0.00 Sodium 140 Potassium 3.6 Chloride 105 Carbon Dioxide 26 Anion Gap 13 BUN 10 Creatinine 0.7 Est GFR ( Amer) > 60 Est GFR (Non-Af Amer) > 60 Random Glucose 146 H Calcium 9.5 Magnesium 2.4 H Total Bilirubin 1.7 H AST 49 ALT 85 H Alkaline Phosphatase 49 Total Protein 7.8 Albumin 4.3 Globulin 3.5 Albumin/Globulin Ratio 1.2 Alcohol, Quantitative Hepatitis A IgM Ab Negative Hep Bs Antigen Negative Hep B Core IgM Ab Negative Hepatitis C Antibody Negative 10/29/16 06:00 WBC RBC Hgb Hct MCV MCH MCHC RDW Plt Count MPV Gran % Lymph % (Auto) Mineral % (Auto) Eos % (Auto) Baso % (Auto) Gran # Lymph # Mineral # Eos # Baso # Sodium Potassium Chloride Carbon Dioxide Anion Gap BUN Creatinine Est GFR ( Amer) Est GFR (Non-Af Amer) Random Glucose Calcium Magnesium Total Bilirubin AST ALT Alkaline Phosphatase Total Protein Albumin Globulin Albumin/Globulin Ratio Alcohol, Quantitative < 10 Hepatitis A IgM Ab Hep Bs Antigen Hep B Core IgM Ab Hepatitis C Antibody Critical Care Progress Note - Nutrition Nutrition: Nutrition Category Date Time Status Altered GI/Hepatic Diet [DIET] Diets 10/28/16 Dinner Ordered Assessment/Plan - Assessment and Plan (Free Text) Plan: 51 y/o M with PMH of polysubstance abuse and nephrolithiasis presents with delirium tremens.
--- NOTE | 2016-10-29 12:04 | CON ---
DATE: 10/29/2016 The patient seen and examined at bedside. This is a 51-year-old gentleman with history of drug abuse and alcohol abuse, who presented yesterday with nonspecific abdominal pain and vomiting. The patient at times becomes very confused and disoriented as well as agitated. His last drink was on Wednesday and presumed diagnosis of alcohol withdrawal was made. The patient was admitted to ICU out of concern for his airways and also due to severe agitation and confusion. Subsequently patient was started on Ativan p.r.n. and Precedex drip with substantial improvement in his agitation. His consciousness continued to fluctuate and in the morning, he was alert and oriented x 3. However, later on, he became agitated and confused again and required extra dose of Ativan. Meanwhile, CAT scan of the head was done, which did not reveal any acute intracranial pathology preliminarily. Official report is still pending. No nausea, no vomiting, no diarrhea, no constipation, no chest pain, no shortness of breath at the time of my evaluation of the patient. PAST MEDICAL HISTORY: Nephrolithiasis. ALLERGIES: NKDA. SOCIAL HISTORY: The patient is alcohol and drug abuser. He also smokes tobacco currently. FAMILY HISTORY: Noncontributory. MEDICATIONS: Presently include Lipitor, clonidine, Precedex drip, lisinopril, Ativan p.r.n., Protonix, promethazine p.r.n. REVIEW OF SYSTEMS: Review of 12 organ systems, other than mentioned in history of present illness, is negative. PHYSICAL EXAMINATION: VITAL SIGNS: Heart rate 48, blood pressure 189/109, oxygen saturation 97% on nasal cannula, respiratory rate 25. HEAD AND NECK: Atraumatic. LUNGS: Clear to auscultation bilaterally. HEART: Regular rate and rhythm. S1, S2 normal. ABDOMEN: Soft, nontender, nondistended. MUSCULOSKELETAL: No C/C/E. NEUROLOGIC: The patient moves all extremities spontaneously. SKIN: Moist. PSYCHIATRIC: The patient at present time is somnolent (he received Ativan recently and on Precedex at present time). LABORATORIES: WBC 6.2, hemoglobin 14.6, platelet count 214. Sodium 140, potassium 3.6, chloride 105, carbon dioxide 26, BUN 10, creatinine 0.7, glucose 146, AST 49, ALT 85. Hepatitis panel is negative. CAT scan of the abdomen and pelvis revealed bilateral nonobstructing renal stones, no ureteral stones, no hydronephrosis, 5 mm left lower lobe pulmonary nodule which is old and had been described in multiple CAT scans back to 2013. Abdominal ultrasound revealed no gallbladder pathology, diffuse increased liver echogenicity, which might be consistent with diffuse fatty infiltration or other liver diffuse parenchymal pathology. ASSESSMENT AND PLAN: This is a 51-year-old gentleman with delirium/alcohol withdrawal with psychotic features. At present time, the patient is on Precedex , Ativan p.r.n. every 6 hours, clonidine for his elevated blood pressure. It appears that he responded to his therapy pretty well. However, still requires ICU monitoring out concern for his airways. Will also continue with optimization of his circadian rhythms by exposing him to as little light as possible during the nighttime, minimizing interruption of his sleep and optimizing his sleep pattern. Frequent reorientation is also indicated. We will continue to target euvolemia, euglycemia, normothermia and oxygen saturation more than 90%. We will continue with deep venous thrombosis and gastrointestinal prophylaxis. ccm time 40 min Adriel Lowe MD cc: [id number] TT: 10/29/2016 12:03:19 Confirmation # [id number] Dictation # [id number] [id number]
--- NOTE | 2016-10-29 12:59 | CT ---
PROCEDURE: CT HEAD WITHOUT CONTRAST. HISTORY: agitation, elevated BP, vomiting-intractable;ALYSA COMPARISON: None available. TECHNIQUE: Axial computed tomography images were obtained through the head/brain without intravenous contrast. Radiation dose: Total exam DLP = 688 mGy-cm. This CT exam was performed using one or more of the following dose reduction techniques: Automated exposure control, adjustment of the mA and/or kV according to patient size, and/or use of iterative reconstruction technique. FINDINGS: HEMORRHAGE: No intracranial hemorrhage. BRAIN: No mass effect or edema. No atrophy or chronic microvascular ischemic changes. VENTRICLES: Unremarkable. No hydrocephalus. CALVARIUM: Unremarkable. PARANASAL SINUSES: Unremarkable as visualized. No significant inflammatory changes. MASTOID AIR CELLS: Unremarkable as visualized. No inflammatory changes. OTHER FINDINGS: None. IMPRESSION: Normal CT of the Head.
--- NOTE | 2016-10-29 13:11 | CP.PCM.PN ---
<Juwan Tse - Last Filed: 10/29/16 13:06> Subjective - Date & Time of Evaluation Date of Evaluation: 10/29/16 Time of Evaluation: 07:45 - Subjective Subjective: Hospitalist Progress note: Pt seen and examined at bedside. Overnight as per nurses patient was very anxious, agitated, and confused with signs of ETOH withdrawals. Pt had to be placed on restraints. CIWA score of 36. Ativan and Geodon was attempted but pt was still agitated. Pt was placed on Precedex. This morning he is more calm he denies any lora, dizziness, f/c, cp, sob, abd pain, urinary or bm changes. Objective - Vital Signs/Intake and Output Vital Signs (last 24 hours): Temp Pulse Resp BP Pulse Ox 98.4 F 65 18 185/96 H 94 L 10/29/16 00:01 10/29/16 11:00 10/29/16 07:00 10/29/16 11:00 10/29/16 07:00 Intake and Output: 10/29/16 10/29/16 06:59 18:59 Intake Total 1480.0 Output Total 2175 Balance -695.0 - Medications Medications: Current Medications Atorvastatin Calcium (Lipitor) 20 mg PO 1700 [facility] Last Admin: 10/28/16 17:32 Dose: 20 mg Clonidine HCl (Catapres) 0.1 mg PO BID PRN PRN Reason: Systolic Blood Pressure Dextrose/Sodium Chloride (Dextrose 5%/0.9% Ns 1000 Ml) 1,000 mls @ 125 mls/hr IV .Q8H [facility] Last Admin: 10/29/16 02:31 Dose: 125 mls/hr Dexmedetomidine HCl (Precedex 4 Mcg/Ml (100 Ml)) 400 mcg in 100 mls @ 4.196 mls /hr IV .[id number] PRN; Protocol; 0.2 MCG/KG/HR PRN Reason: Agitation Last Titration: 10/29/16 04:00 Dose: 0.5 mcg/kg/hr, 10.489 mls/hr Lisinopril (Zestril) 10 mg PO DAILY [facility] Last Admin: 10/29/16 11:00 Dose: 10 mg Lorazepam (Ativan) 1 mg IVP Q4H PRN; Protocol PRN Reason: Anxiety Last Admin: 10/28/16 23:35 Dose: 1 mg Lorazepam (Ativan) 2 mg IVP Q6H PRN; Protocol PRN Reason: Anxiety Last Admin: 10/28/16 20:46 Dose: 2 mg Pantoprazole Sodium (Protonix Inj) 40 mg IVP DAILY [facility] Last Admin: 10/28/16 09:57 Dose: 40 mg Promethazine HCl (Phenergan Inj) 25 mg IM Q6H PRN PRN Reason: Nausea/Vomiting Last Admin: 10/28/16 05:52 Dose: 25 mg - Labs Labs: 10/29/16 06:00 10/29/16 06:00 - Constitutional Appears: No Acute Distress - Head Exam Head Exam: ATRAUMATIC, NORMAL INSPECTION, NORMOCEPHALIC - Eye Exam Eye Exam: EOMI, Normal appearance, PERRL - ENT Exam ENT Exam: Mucous Membranes Moist - Respiratory Exam Respiratory Exam: Clear to Ausculation Bilateral. absent: Rales, Wheezes - Cardiovascular Exam Cardiovascular Exam: REGULAR RHYTHM, RRR, +S1, +S2 - GI/Abdominal Exam GI & Abdominal Exam: Soft. absent: Distended, Tenderness - Extremities Exam Extremities Exam: absent: Calf Tenderness - Neurological Exam Neurological Exam: Alert, Awake, Oriented x3 - Psychiatric Exam Psychiatric exam: Normal Affect, Normal Mood - Skin Skin Exam: Dry, Intact, Normal Color, Warm Assessment and Plan - Assessment and Plan (Free Text) Assessment: 51 year old male with a PMH of drug and ETOH abuse and nephrolithiasis who presents with complaints of intractable vomiting and alcohol withdrawals. 1. Intractable vomiting - Promethazine for nausea - Continue with protonix 40mg daily - CT abd and pelvis shiws b/l nonobstructing stones, 5mm pulm nodule stable since 2012 - Abd US - Diffuse fatty infiltration, no gallbladder pathology - GI Dr Quinn consulted for recs 2. ETOH withdrwal - Currently on precedx drip - Ativan 2mg Q2H PRN, - [facility] protocol - Head CT - negative - Fall, seizure and aspiration precautions 3. Transaminitis likely 2/2 etoh abuse - resolving - AST 64--> 49 - ALT 112--> 85 - CT abd and pelvis shiws b/l nonobstructing stones, 5mm pulm nodule stable since 2012 - Abd US - Diffuse fatty infiltration, no gallbladder pathology - GI consulted for recs - Promethazine for nausea 4. HTN: - Clonidine .1mg BID PRN - Lisinopril 10mg daily 5. HLD: - Lipitor 20mg daily GI/ DVT ppx: Protonix and SCDs Case and plan was seen, reviewed and discussed in detail with Dr Subramanian <Ofelia Sullivan - Last Filed: 10/29/16 17:23> Objective - Vital Signs/Intake and Output Vital Signs (last 24 hours): Temp Pulse Resp BP Pulse Ox 98.4 F 65 18 185/96 H 94 L 10/29/16 00:01 10/29/16 11:00 10/29/16 07:00 10/29/16 11:00 10/29/16 07:00 Intake and Output: 10/29/16 10/29/16 06:59 18:59 Intake Total 1480.0 Output Total 2175 Balance -695.0 - Medications Medications: Current Medications Amlodipine Besylate (Norvasc) 10 mg PO DAILY [facility] Atorvastatin Calcium (Lipitor) 20 mg PO 1700 [facility] Last Admin: 10/28/16 17:32 Dose: 20 mg Clonidine HCl (Catapres) 0.1 mg PO BID PRN PRN Reason: Systolic Blood Pressure Dextrose/Sodium Chloride (Dextrose 5%/0.9% Ns 1000 Ml) 1,000 mls @ 125 mls/hr IV .Q8H [facility] Last Admin: 10/29/16 02:31 Dose: 125 mls/hr Dexmedetomidine HCl (Precedex 4 Mcg/Ml (100 Ml)) 400 mcg in 100 mls @ 4.196 mls /hr IV .[id number] PRN; Protocol; 0.2 MCG/KG/HR PRN Reason: Agitation Last Titration: 10/29/16 04:00 Dose: 0.5 mcg/kg/hr, 10.489 mls/hr Lisinopril (Zestril) 10 mg PO DAILY [facility] Last Admin: 10/29/16 11:00 Dose: 10 mg Lorazepam (Ativan) 2 mg IVP Q2H PRN; Protocol PRN Reason: Anxiety Pantoprazole Sodium (Protonix Inj) 40 mg IVP DAILY [facility] Last Admin: 10/28/16 09:57 Dose: 40 mg Promethazine HCl (Phenergan Inj) 25 mg IM Q6H PRN PRN Reason: Nausea/Vomiting Last Admin: 10/28/16 05:52 Dose: 25 mg - Labs Labs: 10/29/16 06:00 10/29/16 06:00 Attending/Attestation - Attestation I have personally seen and examined this patient.: Yes I have fully participated in the care of the patient.: Yes I have reviewed all pertinent clinical information, including history, physical exam and plan: Yes Notes (Text): 10/29/16 17:20 attending note; Patient seen and examined with resident in ICU. patient is a 51-year-old male admitted with abdominal pain nausea, vomiting. Even though patient denied alcohol abuse patient went into delirium tremens last night. Transferred to ICU. Currently on precedex drip. Continue IV Ativan. Patient is alert and awake. Confused at times. Elevated LFT. Secondary to alcohol abuse. GI evaluation appreciated. opiate abuse. Monitor closely in ICU. Upon discharge the patient will follow up with PMD Dr. Araiza.
--- NOTE | 2016-10-29 15:23 | PN ---
DATE: 10/29/2016 The patient was seen and examined at the bedside earlier today. No reports of any nausea, vomiting or abdominal pain. No hematemesis. The patient is awake and alert with some confusion. The patient with ETOH withdrawals. He had a head CT done last night and was negative for intracranial hemorrhage, no ischemic changes. VITAL SIGNS: Temperature is 98.4, blood pressure was 155/84, pulse 65, respirations 18. LABORATORIES: WBC 6.2, H and H is 14.6 and 41.3. Sodium is 140, K 3.6, BUN 10 , creatinine 0.7, total bilirubin is 1.7, AST 49, ALT 85, alkaline phosphatase is 49. LFTs do show improvement. Hepatitis panel is negative. PHYSICAL EXAMINATION: HEENT: Sclera is anicteric. NECK: Supple. CARDIAC: S1, S2. LUNGS: With decreased breath sounds, but good air entry, no rales or wheeze. ABDOMEN: With bowel sounds, soft. It was not distended, nontender on palpation. No rebound or guarding. EXTREMITIES: No edema. NEUROLOGIC: The patient is awake with some confusion, is noted to have some tremor, mild. ASSESSMENT/PLAN: The patient originally came in with abdominal pain. The patient has history of chronic ethyl alcohol. He is having withdrawal symptoms. The patient was confused and agitated, transferred to ICU. The patient is on Precedex. His diet was advanced to solids and so far is tolerating. We will continue gastrointestinal prophylaxis. The patient is on Ativan p.r.n., on IV fluids. Monitor LFTs. The patient is on 1:1, seizure precautions, withdrawal precautions. He also has history of drug abuse. Ultrasound was done, showed possible fatty liver. Continue to trend the LFTs. Continue close monitoring. The patient was seen and case discussed with Dr. Quinn. Tiffanie MEDRANO cc: [id number] TT: 10/29/2016 15:23:02 Confirmation # [id number] Dictation # [id number] MTDD
--- NOTE | 2016-10-30 00:36 | PN ---
DATE: 10/29/2016 ADDENDUM: This is an addendum to the GI progress report dictated by Tiffanie Donaldson NP. SUBJECTIVE: The patient was seen and evaluated earlier. The patient was comfortable, tolerating the diet. Still has abdominal pain. LABORATORY DATA: Followup of the LFTs. Ultrasound scan was reviewed. PLAN: We will continue to closely follow up his care. Michelle Quinn MD cc: [id number] TT: 10/30/2016 00:35:07 Confirmation # [id number] Dictation # [id number] mn
[2016-10-30] MEDS: Dexmedetomidine HCl 4mcg/ml 400 MCG/100 ML BOTTLE IV PRN ×4 (01:09→08:44)
[2016-10-30 05:57] LABS: ADD MANUAL DIFF? NO
[2016-10-30 06:05] LABS: BASO # 0.01 K/mm3 (0.0-2.0); BASO % 0.1 % (0.0-3.0); EOS % 0.1 % (1.5-5.0); GRAN # 5.86 (1.4-6.5); GRAN % 71.6 % (50.0-68.0); HEMATOCRIT 44.8 % (42.0-52.0); LYMPH # 1.6 (1.2-3.4); MEAN CELL VOLUME 91.8 fL (80.0-105.0); MEAN CORPUSCULAR HGB CONC 35.9 g/dl (31.0-37.0); MEAN PLATELET VOLUME 10.4 fl (7.0-11.0); MONO # 0.8 (0.1-0.6); MONO % 9.2 % (1.0-6.0); PLATELET COUNT 190 10^3/uL (120.0-450.0); RED CELL DISTRIBUTION WIDTH 12.2 % (11.5-14.5); WHITE BLOOD COUNT 8.2 10^3/ul (4.5-11.0)
[2016-10-30 06:22] LABS: ALB/GLOB RATIO 1.2 (1.1-1.8); ALKALINE PHOSPHATASE 61 U/L (38-133); ALT/SGPT 93 U/L (7-56); AST/SGOT 50 U/L (15-59); BILIRUBIN,TOTAL 1.6 mg/dL (0.2-1.3); BLOOD UREA NITROGEN 15 mg/dL (7-21); CALCIUM 9.7 mg/dL (8.4-10.5); CARBON DIOXIDE 26 mmol/L (21-33); CHLORIDE 101 mmol/L (95-110); GFR AFRICAN-AMERICAN > 60; GLUCOSE,RANDOM 127 mg/dL (70-110); MAGNESIUM 2.1 mg/dL (1.7-2.2); PHOSPHOROUS 4.1 mg/dL (2.5-4.5); POTASSIUM 3.1 mmol/L (3.6-5.0); SODIUM 139 mmol/L (132-148); TOTAL PROTEIN 8.2 g/dL (5.8-8.3)
[2016-10-30] MEDS ORDERED: Potassium Chloride 20 mEq ER Tab PO SCH (08:00)
--- NOTE | 2016-10-30 09:21 | CP.PCM.PN ---
<CarmencitaJuwan - Last Filed: 10/30/16 11:35> Subjective - Date & Time of Evaluation Date of Evaluation: 10/30/16 Time of Evaluation: 07:00 - Subjective Subjective: Hospitalist Progress note: Pt seen and examined at bedside. Overnight pt was again anxious, agitated, and confused with signs of ETOH withdrawals. Leonora dias called 2 times. Restraints placed. Ativan, Haloperidol and Geodon was administered. Pt is currently somnolent. ROS unobtainable. Yesterday upon examining him at bedside his called him by his personal cellphone. We asked him if he would like us to talk to his and let him know what is going on and he said he does not want anyone talking to his . Today pt is at bedside. She is stating the patient is in severe pain. Pt is sedated due to his withdrawal symptoms. She is asking leading questions for him to say he is in pain and encouraging him to scream so that he can get more pain medications. She is also asking us to remove the restraints on him that is in place for patients own and medical staff safety. The hospital policies were explained to her in detail. Plan: Patient rep called for evaluation and recommendation. Pt currently sedated. We added pain medication Morphine 2mg Q4H for him in case he gets agitated and states that he is in pain. Nicotine patch is ordered for nicotine withdrawals. We will continue to monitor her 1:1. Psychiatry eval requested. Objective - Vital Signs/Intake and Output Vital Signs (last 24 hours): Temp Pulse Resp BP Pulse Ox 97.9 F 57 L 22 148/85 100 10/30/16 00:00 10/30/16 05:20 10/30/16 05:20 10/30/16 05:00 10/30/16 05:20 Intake and Output: 10/30/16 10/30/16 06:59 18:59 Intake Total 300 100 Balance 300 100 - Medications Medications: Current Medications Amlodipine Besylate (Norvasc) 10 mg PO DAILY [facility] Last Admin: 10/29/16 18:42 Dose: 10 mg Atorvastatin Calcium (Lipitor) 20 mg PO 1700 [facility] Last Admin: 10/29/16 18:36 Dose: 20 mg Clonidine HCl (Catapres) 0.2 mg PO BID PRN PRN Reason: Systolic Blood Pressure Last Admin: 10/29/16 18:41 Dose: 0.2 mg Dexmedetomidine HCl (Precedex 4 Mcg/Ml (100 Ml)) 400 mcg in 100 mls @ 4.196 mls /hr IV .[id number] PRN; Protocol; 0.2 MCG/KG/HR PRN Reason: Agitation Last Admin: 10/30/16 08:44 Dose: 2 mcg/kg/hr, 41.958 mls/hr Potassium Chloride (Potassium Chloride 20 Meq/100 Ml) 20 meq in 100 mls @ 50 mls/hr IVPB ONCE ONE Stop: 10/30/16 09:34 Last Admin: 10/30/16 08:00 Dose: 50 mls/hr Potassium Chloride (Potassium Chloride 10 Meq/100 Ml) 10 meq in 100 mls @ 100 mls/hr IVPB ONCE ONE Stop: 10/30/16 10:59 Lisinopril (Zestril) 10 mg PO DAILY [facility] Last Admin: 10/29/16 11:00 Dose: 10 mg Lorazepam (Ativan) 2 mg IVP Q2H PRN; Protocol PRN Reason: Anxiety Last Admin: 10/30/16 07:30 Dose: 2 mg Pantoprazole Sodium (Protonix Inj) 40 mg IVP DAILY [facility] Last Admin: 10/29/16 18:43 Dose: 40 mg Potassium Chloride (K-Dur 20 Meq Er Tab) 20 meq PO BRK [facility] Promethazine HCl (Phenergan Inj) 25 mg IM Q6H PRN PRN Reason: Nausea/Vomiting Last Admin: 10/28/16 05:52 Dose: 25 mg - Labs Labs: 10/30/16 05:35 10/30/16 05:35 - Constitutional Appears: No Acute Distress, Confused - Head Exam Head Exam: ATRAUMATIC, NORMAL INSPECTION, NORMOCEPHALIC - Eye Exam Eye Exam: EOMI, Normal appearance, PERRL - ENT Exam ENT Exam: Mucous Membranes Moist, Normal Exam - Neck Exam Neck Exam: Full ROM, Normal Inspection. absent: Lymphadenopathy - Respiratory Exam Respiratory Exam: Clear to Ausculation Bilateral, NORMAL BREATHING PATTERN - Cardiovascular Exam Cardiovascular Exam: REGULAR RHYTHM, RRR, +S1, +S2. absent: Murmur - GI/Abdominal Exam GI & Abdominal Exam: Soft. absent: Distended, Tenderness - Extremities Exam Extremities Exam: absent: Calf Tenderness - Back Exam Back Exam: NORMAL INSPECTION - Neurological Exam Neurological Exam: Alert, Awake, Oriented x3 - Psychiatric Exam Additional comments: sedated - Skin Skin Exam: Dry, Intact, Normal Color, Warm Assessment and Plan - Assessment and Plan (Free Text) Assessment: 51 year old male with a PMH of drug and ETOH abuse and nephrolithiasis who presents with complaints of intractable vomiting and alcohol withdrawal symptoms including severe agitation. 1. Intractable vomiting - Promethazine for nausea - Continue with protonix 40mg daily - CT abd and pelvis shiws b/l nonobstructing stones, 5mm pulm nodule stable since 2012 - Abd US - Diffuse fatty infiltration, no gallbladder pathology - GI Dr Quinn consulted for recs 2. ETOH withdrwal - Ativan, Geodon, and Haloperidol used overnight for agitation - Currently on precedx drip - Ativan 2mg Q2H PRN, - MOrphine 2mg Q4H for pain - [facility] protocol - Head CT - negative - Consulted Psychiatry for recs - Fall, seizure and aspiration precautions 3. Transaminitis likely 2/2 etoh abuse - resolving - AST 50 - ALT 93 - CT abd and pelvis shiws b/l nonobstructing stones, 5mm pulm nodule stable since 2012 - Abd US - Diffuse fatty infiltration, no gallbladder pathology - GI consulted for recs - Promethazine for nausea 4. HTN: - Clonidine .2mg BID PRN - Lisinopril 10mg daily - Amlodipine 10mg daily 5. HLD: - Lipitor 20mg daily GI/ DVT ppx: Protonix and SCDs Case and plan was seen, reviewed and discussed in detail with Dr Subramanian <Ofelia Sullivan - Last Filed: 10/30/16 17:24> Objective - Vital Signs/Intake and Output Vital Signs (last 24 hours): Temp Pulse Resp BP Pulse Ox 97.9 F 57 L 22 148/85 100 10/30/16 00:00 10/30/16 05:20 10/30/16 05:20 10/30/16 05:00 10/30/16 05:20 Intake and Output: 10/30/16 10/30/16 06:59 18:59 Intake Total 300 100 Balance 300 100 - Medications Medications: Current Medications Amlodipine Besylate (Norvasc) 10 mg PO DAILY [facility] Last Admin: 10/29/16 18:42 Dose: 10 mg Atorvastatin Calcium (Lipitor) 20 mg PO 1700 [facility] Last Admin: 10/29/16 18:36 Dose: 20 mg Chlordiazepoxide (Librium) 50 mg PO Q6H [facility] PRN Reason: Protocol Stop: 10/31/16 10:16 Clonidine HCl (Catapres) 0.2 mg PO BID PRN PRN Reason: Systolic Blood Pressure Last Admin: 10/29/16 18:41 Dose: 0.2 mg Folic Acid (Folic Acid) 1 mg PO DAILY [facility] Gabapentin (Neurontin) 600 mg PO BID [facility] PRN Reason: Protocol Dexmedetomidine HCl (Precedex 4 Mcg/Ml (100 Ml)) 400 mcg in 100 mls @ 4.196 mls /hr IV .[id number] PRN; Protocol; 0.2 MCG/KG/HR PRN Reason: Agitation Last Admin: 10/30/16 08:44 Dose: 2 mcg/kg/hr, 41.958 mls/hr Lisinopril (Zestril) 10 mg PO DAILY [facility] Last Admin: 10/29/16 11:00 Dose: 10 mg Lorazepam (Ativan) 2 mg IVP Q2H PRN; Protocol PRN Reason: Anxiety Last Admin: 10/30/16 07:30 Dose: 2 mg Morphine Sulfate (Morphine) 1 mg IVP Q4H PRN PRN Reason: Pain, severe (8-10) Multivitamins/Minerals (Therapeutic-M Tab) 1 tab PO DAILY [facility] Nicotine (Nicoderm Cq) 1 patch TD DAILY [facility] Last Admin: 10/30/16 11:52 Dose: 1 patch Pantoprazole Sodium (Protonix Inj) 40 mg IVP DAILY [facility] Last Admin: 10/29/16 18:43 Dose: 40 mg Potassium Chloride (K-Dur 20 Meq Er Tab) 20 meq PO BRK [facility] Promethazine HCl (Phenergan Inj) 25 mg IM Q6H PRN PRN Reason: Nausea/Vomiting Last Admin: 10/28/16 05:52 Dose: 25 mg Thiamine HCl (Vitamin B1 Tab) 100 mg PO DAILY [facility] Ziprasidone (Geodon Inj) 20 mg IM Q8H PRN; Protocol PRN Reason: agitation/psychosis - Labs Labs: 10/30/16 05:35 10/30/16 05:35 Attending/Attestation - Attestation I have personally seen and examined this patient.: Yes I have fully participated in the care of the patient.: Yes I have reviewed all pertinent clinical information, including history, physical exam and plan: Yes Notes (Text): 10/30/16 17:18 attending note; Patient seen and examined with resident in ICU. currently sedated on wrist restraint. Patient's by the bedside. she is requesting IV morphine for him. Also requesting to discontinue the restraints. Patient is currently on 1;1. Will try to discontinue restraint and monitor closely.But in case if he is agitated or confuse, harmful to self or others the need to place him on restraints. Explained to the in detail. hospital policies explained in detail. patient authorization representative also spoke with patient's and addressed her concerns. Patient is also lethargic now. Does not require IV morphine. In case if patient is alert and requesting pain medication we will give as needed. NicoDerm patch applied. Yesterday the patient did not want us to talk to his . We will clarify this once patient is more alert and awake. psychiatric evaluation requested for severe agitation. Currently on precedex drip. Continue IV Ativan. Elevated LFT. Improved. Secondary to alcohol abuse. GI evaluation appreciated Monitor closely in ICU. Upon discharge the patient will follow up with PMD Dr. Araiza. 10/30/16 17:22 10/30/16 17:23
[2016-10-30] MEDS ORDERED: Morphine 2 mg/ml ISec IVP PRN (11:07)
--- NOTE | 2016-10-30 11:35 | CP.CCUPN ---
<Monahan,Telma - Last Filed: 10/30/16 15:29> CCU Subjective - Physician Review Subjective (Free Text): 10/30/16 11:17 Pt s/e at bedside in the CCU. Overnight samantha estes was called twice due to patient agitation, successfully escaping his posy restraint and attempts to leave the hospital. Patient was sedated and put in 4 point restraints. Today patient is somnolent, rousing with physical touch, and responsive after multiple verbal cues. Patient is not oriented to time, place, and not answering questions appropriately. Denies any abdominal pain, nausea, vomiting, diarrhea, chest pain, SOB, or any other problems. CCU Objective - Vital Signs / Intake & Output Intake and Output (Last 8hrs): Intake & Output 10/29/16 10/30/16 10/30/16 22:59 06:59 14:59 Intake Total 300 100 Balance 300 100 Intake: IV 300 100 Other: Voiding Method Incontinent - Physical Exam Physical Exam Limitations: Positive for: Altered Mental Status Head: Positive for: Atraumatic, Normocephalic Pupils: Positive for: PERRL, Pinpoint Conjunctiva: Positive for: Normal Mouth: Positive for: Dry, Normal Lips Neck: Positive for: Normal Range of Motion Respiratory/Chest: Positive for: Clear to Auscultation, Good Air Exchange. Negative for: Respiratory Distress, Accessory Muscle Use Cardiovascular: Positive for: Regular Rate and Rhythm, Normal S1, S2. Negative for: Murmurs Abdomen: Positive for: Hernias (umbilical hernia, reducible, non-erythematous). Negative for: Tenderness, Distention, Peritoneal Signs, Rebound, Guarding Upper Extremity: Positive for: Normal Inspection, NORMAL PULSES. Negative for: Cyanosis, Edema, Tenderness, Swelling Lower Extremity: Positive for: Normal Inspection. Negative for: Edema Neurological: Positive for: GCS=15. Negative for: Speech Normal (mubling, difficult to understand) Skin: Positive for: Warm, Dry, Normal Color. Negative for: Rashes Psychiatric: Negative for: Alert, Oriented x 3, Normal Insight, Normal Concentration - Medications Active Medications: Active Medications Generic Name Dose Route Start Last Admin Trade Name Freq PRN Reason Stop Dose Admin Amlodipine Besylate 10 mg 10/29/16 17:30 10/29/16 18:42 Norvasc PO 10 mg DAILY JHOANA Administration Atorvastatin Calcium 20 mg 10/28/16 17:00 10/29/16 18:36 Lipitor PO 20 mg 1700 JHOANA Administration Clonidine HCl 0.2 mg 10/29/16 17:28 10/29/16 18:41 Catapres PO 0.2 mg BID PRN Administration Systolic Blood Pressure Dexmedetomidine HCl 400 mcg in 100 mls @ 4.196 mls/hr 10/29/16 02:01 08:44 Precedex 4 Mcg/Ml (100 Ml) IV 2 mcg/kg/hr .[id number] PRN 41.958 mls/hr Agitation Administration Protocol 0.2 MCG/KG/HR Lisinopril 10 mg 10/29/16 10:00 10/29/16 11:00 Zestril PO 10 mg DAILY JHOANA Administration Lorazepam 2 mg 10/29/16 13:16 10/30/16 07:30 Ativan IVP 2 mg Q2H PRN Administration Anxiety Protocol Morphine Sulfate 2 mg 10/30/16 11:07 Morphine IVP Q4H PRN Pain, severe (8-10) Nicotine 1 patch 10/30/16 10:45 Nicoderm Cq TD DAILY JHOANA Pantoprazole Sodium 40 mg 10/28/16 10:00 10/29/16 18:43 Protonix Inj IVP 40 mg DAILY JHOANA Administration Potassium Chloride 20 meq 10/30/16 08:00 K-Dur 20 Meq Er Tab PO BRK JHOANA Promethazine HCl 25 mg 10/28/16 02:52 10/28/16 05:52 Phenergan Inj IM 25 mg Q6H PRN Administration Nausea/Vomiting - Patient Studies Lab Studies: Lab Studies 10/30/16 10/30/16 Range/Units 05:35 05:35 WBC 8.2 D (4.5-11.0) 10^3/ul RBC 4.88 (3.5-6.1) 10^6/uL Hgb 16.1 (14.0-18.0) gm/dL Hct 44.8 (42.0-52.0) % MCV 91.8 (80.0-105.0) fL MCH 33.0 (25.0-35.0) pg MCHC 35.9 (31.0-37.0) g/dl RDW 12.2 (11.5-14.5) % Plt Count 190 (120.0-450.0) 10^3/uL MPV 10.4 (7.0-11.0) fl Gran % 71.6 H (50.0-68.0) % Lymph % (Auto) 19.0 L (22.0-35.0) % [place] % (Auto) 9.2 H (1.0-6.0) % Eos % (Auto) 0.1 L (1.5-5.0) % Baso % (Auto) 0.1 (0.0-3.0) % Gran # 5.86 (1.4-6.5) Lymph # 1.6 (1.2-3.4) [place] # 0.8 H (0.1-0.6) Eos # 0.0 (0.0-0.7) Baso # 0.01 (0.0-2.0) K/mm3 Sodium 139 (132-148) mmol/L Potassium 3.1 L (3.6-5.0) mmol/L Chloride 101 (95-110) mmol/L Carbon Dioxide 26 (21-33) mmol/L Anion Gap 15 (10-20) BUN 15 (7-21) mg/dL Creatinine 0.6 (0.5-1.4) mg/dL Est GFR ( Amer) > 60 Est GFR (Non-Af Amer) > 60 Random Glucose 127 H (70-110) mg/dL Calcium 9.7 (8.4-10.5) mg/dL Phosphorus 4.1 (2.5-4.5) mg/dL Magnesium 2.1 (1.7-2.2) mg/dL Total Bilirubin 1.6 H (0.2-1.3) mg/dL AST 50 (15-59) U/L ALT 93 H (7-56) U/L Alkaline Phosphatase 61 (38-133) U/L Total Protein 8.2 (5.8-8.3) g/dL Albumin 4.5 (3.0-4.8) g/dL Globulin 3.7 gm/dL Albumin/Globulin Ratio 1.2 (1.1-1.8) Laboratory Results - last 24 hr 10/30/16 10/30/16 05:35 05:35 WBC 8.2 D RBC 4.88 Hgb 16.1 Hct 44.8 MCV 91.8 MCH 33.0 MCHC 35.9 RDW 12.2 Plt Count 190 MPV 10.4 Gran % 71.6 H Lymph % (Auto) 19.0 L [place] % (Auto) 9.2 H Eos % (Auto) 0.1 L Baso % (Auto) 0.1 Gran # 5.86 Lymph # 1.6 Gilpin # 0.8 H Eos # 0.0 Baso # 0.01 Sodium 139 Potassium 3.1 L Chloride 101 Carbon Dioxide 26 Anion Gap 15 BUN 15 Creatinine 0.6 Est GFR ( Amer) > 60 Est GFR (Non-Af Amer) > 60 Random Glucose 127 H Calcium 9.7 Phosphorus 4.1 Magnesium 2.1 Total Bilirubin 1.6 H AST 50 ALT 93 H Alkaline Phosphatase 61 Total Protein 8.2 Albumin 4.5 Globulin 3.7 Albumin/Globulin Ratio 1.2 Review of Systems - Review of Systems Systems not reviewed;Unavailable: Altered Mental Status All systems: reviewed and no additional remarkable complaints except Critical Care Progress Note - Extremities/Vascular Does the Patient have a Central Venous Catheter?: No - Nutrition Nutrition: Nutrition Category Date Time Status Altered GI/Hepatic Diet [DIET] Diets 10/28/16 Dinner Ordered Assessment/Plan - Assessment and Plan (Free Text) Assessment: 51M with PMH of ETOH abuse, chronic opioid use, HTN, and HLD in the ICU for delirium tremens requiring a Precedex drip for severe agitation and combativeness over night Neuro: HR and BP stable CT head: negative for any acute pathology Serum alcohol <10 on 10/29 Tox screen positive for opiates Pt not oriented to time or place, with non-sensical responses CIWA protocol Plan Precedex drip Librium 50 Q6 x4, then 25mg Q6 x8 doses per CIWA protocol Ativan 2 mg IV q6h prn for agitation Geodon Q8 PRN for agitation Clonidine 0.2mg PRN for systolic HTN Home Neurontin dose restarted Follow up psychiatric consult--Appreciate recs GI: Abd/Pelvis CT - bilateral nonobstructing renal stones, no ureteral stones or hydronephrosis, fatty liver (please see full report) Abdomen ultrasound-diffuse fatty liver, no gall stones Hep panel negative Total Bilirubin trending down, slight increase in AST/ALT Plan GI, Dr. Cheyenne, consulted. Help appreciated. No interventions of further work up recommended at this time. Phenergen prn for nausea and vomiting Lipitor 20 mg po qd Cardio: History of HTN, HLD BP 148/85 HR - 57 EKG - prolonged QT interval, LVH (please see full report) Plan Zestril 10 mg po qd Amlodipine 10mg Clonidine 0.2 mg po bid prn Prophylactic Measures: DVT: SCDs GI: Protonix 40 mg IV qd Dispo: continued inpatient stay in the ICU for at least one more overnight to continue monitoring for ETOH withdrawal and precedex drip Patient seen and examined with Dr. Mynor Monahan, PYG1 <Adriel Lowe - Last Filed: 10/30/16 16:27> CCU Objective - Vital Signs / Intake & Output Intake and Output (Last 8hrs): Intake & Output 10/30/16 10/30/16 10/30/16 06:59 14:59 22:59 Intake Total 300 100 Balance 300 100 Intake: IV 300 100 Other: Voiding Method Incontinent - Medications Active Medications: Active Medications Generic Name Dose Route Start Last Admin Trade Name Freq PRN Reason Stop Dose Admin Amlodipine Besylate 10 mg 10/29/16 17:30 10/29/16 18:42 Norvasc PO 10 mg DAILY JHOANA Administration Atorvastatin Calcium 20 mg 10/28/16 17:00 10/29/16 18:36 Lipitor PO 20 mg 1700 JHOANA Administration Chlordiazepoxide 50 mg 10/30/16 16:15 Librium PO 10/31/16 10:16 Q6H JHOANA Protocol Clonidine HCl 0.2 mg 10/29/16 17:28 10/29/16 18:41 Catapres PO 0.2 mg BID PRN Administration Systolic Blood Pressure Folic Acid 1 mg 10/31/16 10:00 Folic Acid PO DAILY JHOANA Gabapentin 600 mg 10/30/16 18:00 Neurontin PO BID JHOANA Protocol Dexmedetomidine HCl 400 mcg in 100 mls @ 4.196 mls/hr 10/29/16 02:01 08:44 Precedex 4 Mcg/Ml (100 Ml) IV 2 mcg/kg/hr .[id number] PRN 41.958 mls/hr Agitation Administration Protocol 0.2 MCG/KG/HR Lisinopril 10 mg 10/29/16 10:00 10/29/16 11:00 Zestril PO 10 mg DAILY JHOANA Administration Lorazepam 2 mg 10/29/16 13:16 10/30/16 07:30 Ativan IVP 2 mg Q2H PRN Administration Anxiety Protocol Morphine Sulfate 1 mg 10/30/16 12:04 Morphine IVP Q4H PRN Pain, severe (8-10) Multivitamins/Minerals 1 tab 10/31/16 10:00 Therapeutic-M Tab PO DAILY JHOANA Nicotine 1 patch 10/30/16 10:45 10/30/16 11:52 Nicoderm Cq TD 1 patch DAILY JHOANA Administration Pantoprazole Sodium 40 mg 10/28/16 10:00 10/29/16 18:43 Protonix Inj IVP 40 mg DAILY JHOANA Administration Potassium Chloride 20 meq 10/30/16 08:00 K-Dur 20 Meq Er Tab PO BRK JHOANA Promethazine HCl 25 mg 10/28/16 02:52 10/28/16 05:52 Phenergan Inj IM 25 mg Q6H PRN Administration Nausea/Vomiting Thiamine HCl 100 mg 10/31/16 10:00 Vitamin B1 Tab PO DAILY JHOANA Ziprasidone 20 mg 10/30/16 14:47 Geodon Inj IM Q8H PRN agitation/psychosis Protocol - Patient Studies Lab Studies: Microbiology Studies 10/29/16 02:25 MRSA Culture (Admit) - Final Nose MRSA NOT DETECTED Lab Studies 10/30/16 10/30/16 Range/Units 05:35 05:35 WBC 8.2 D (4.5-11.0) 10^3/ul RBC 4.88 (3.5-6.1) 10^6/uL Hgb 16.1 (14.0-18.0) gm/dL Hct 44.8 (42.0-52.0) % MCV 91.8 (80.0-105.0) fL MCH 33.0 (25.0-35.0) pg MCHC 35.9 (31.0-37.0) g/dl RDW 12.2 (11.5-14.5) % Plt Count 190 (120.0-450.0) 10^3/uL MPV 10.4 (7.0-11.0) fl Gran % 71.6 H (50.0-68.0) % Lymph % (Auto) 19.0 L (22.0-35.0) % [place] % (Auto) 9.2 H (1.0-6.0) % Eos % (Auto) 0.1 L (1.5-5.0) % Baso % (Auto) 0.1 (0.0-3.0) % Gran # 5.86 (1.4-6.5) Lymph # 1.6 (1.2-3.4) [place] # 0.8 H (0.1-0.6) Eos # 0.0 (0.0-0.7) Baso # 0.01 (0.0-2.0) K/mm3 Sodium 139 (132-148) mmol/L Potassium 3.1 L (3.6-5.0) mmol/L Chloride 101 (95-110) mmol/L Carbon Dioxide 26 (21-33) mmol/L Anion Gap 15 (10-20) BUN 15 (7-21) mg/dL Creatinine 0.6 (0.5-1.4) mg/dL Est GFR ( Amer) > 60 Est GFR (Non-Af Amer) > 60 Random Glucose 127 H (70-110) mg/dL Calcium 9.7 (8.4-10.5) mg/dL Phosphorus 4.1 (2.5-4.5) mg/dL Magnesium 2.1 (1.7-2.2) mg/dL Total Bilirubin 1.6 H (0.2-1.3) mg/dL AST 50 (15-59) U/L ALT 93 H (7-56) U/L Alkaline Phosphatase 61 (38-133) U/L Total Protein 8.2 (5.8-8.3) g/dL Albumin 4.5 (3.0-4.8) g/dL Globulin 3.7 gm/dL Albumin/Globulin Ratio 1.2 (1.1-1.8) Laboratory Results - last 24 hr 10/30/16 10/30/16 05:35 05:35 WBC 8.2 D RBC 4.88 Hgb 16.1 Hct 44.8 MCV 91.8 MCH 33.0 MCHC 35.9 RDW 12.2 Plt Count 190 MPV 10.4 Gran % 71.6 H Lymph % (Auto) 19.0 L [place] % (Auto) 9.2 H Eos % (Auto) 0.1 L Baso % (Auto) 0.1 Gran # 5.86 Lymph # 1.6 [place]pin # 0.8 H Eos # 0.0 Baso # 0.01 Sodium 139 Potassium 3.1 L Chloride 101 Carbon Dioxide 26 Anion Gap 15 BUN 15 Creatinine 0.6 Est GFR ( Amer) > 60 Est GFR (Non-Af Amer) > 60 Random Glucose 127 H Calcium 9.7 Phosphorus 4.1 Magnesium 2.1 Total Bilirubin 1.6 H AST 50 ALT 93 H Alkaline Phosphatase 61 Total Protein 8.2 Albumin 4.5 Globulin 3.7 Albumin/Globulin Ratio 1.2 Critical Care Progress Note - Nutrition Nutrition: Nutrition Category Date Time Status Liquid Diet [DIET] Diets 10/30/16 Lunch Ordered Addendum Addendum: 10/30/16 16:22 patient was seen, examined and discussed with Dr. Gabriel. Her note reflects my exam, assessment and plan, except as below. Meds/Labs/ONE reviewed 51 yo with ETOH withdrawal. Will proceed with Librium taper, Ativan PRN, Precedex drip, clonidine. circadian and sleep pattern optimization, frequent re- orientation during daytime. ccm time 40 min
--- NOTE | 2016-10-30 15:39 | CON ---
DATE: 10/30/2016 HISTORY OF PRESENT ILLNESS: Shortly, the patient is a 51-year-old male with past history o f alcohol use disorder. The patient also has history of opioid abuse, hypertension, dyslipidemia. T he patient was admitted into the ICU for delirium tremens. Psych consult was called for evaluation o f change in mental status. The patient was combative, needed to be in restraints, samantha dias was call ed earlier. The patient was seen and examined. The patient's is next to the patient, her name is Jo-Ann. The patient presented to be sedated. He is on Precedex and the majority of the informati on was obtained from the . As per , the patient is not at his baseline. The patient was [place] The patient was seeing people who were not there. The patient a lso was not making much sense when he was brought in. The patient's reports that she feels conc erned about the patient. At the same time, patient's seems to not have a basic understanding of the problems that patient has. The patient's was requesting to stop sedation. The patient's w donis was also saying that her is mistreated. At the same time, patient's was making stat ements such as "I'm not well myself. I have history of mental illness, but he is okay.". The patien fany was educated about the treatment plan, which was discussed with Dr. Lowe earlier. This display card writer educated patient and patient's that it is not safe to discharge at present moment because patien fany still has alteration in his mental status as well as patient requires to be in restraints as well a s samantha dias was called. On top of that, patient has hallucinations. Over all patient's was abl e to calm down. Treatment plan was discussed in detail. The patient seems to be sedated, had no idea where he is. At the same time, patient saying that he i s in casino in [place]. The patient also was seeing things which were not there. VITAL SIGNS: Pulse is 57, blood pressure 148/82, respirations 22, oxygen saturation 100. MEDICATIONS: Reviewed, Norvasc, Lipitor, Librium 50 mg q. 6 hours scheduled, Catapres 0.2 mg twice a day as needed, Precedex, Neurontin 600 mg twice a day, Zestril, Ativan 2 mg IV push q. 2 hours as needed, morphine as well as NicoDerm, Protonix, K-Dur, Phenergan as well as this display card writer will implemen t Geodon 20 mg q. 8 hours for severe agitation. LABORATORY DATA: Reviewed. Most recent was from today, low potassium level. AST and ALT are going down. Urine is within normal limits. Toxicology positive for opioids. As per , the patient ramirez s not have history of mental illness, drinks on daily basis, "couple of beers", the patient does not have history of detoxes and rehabs. The patient was seen by Dr. Chacon as a change consultant in 2013 under the same circumstances, cocaine and marijuana abuse. The patient was not depressed and denied any m ental history back then either. MENTAL STATUS EXAMINATION: As this display card writer described above, patient is having altered mental status. The patient is status post medications, Geodon as well as Precedex. The patient is opening his eyes , disoriented. He thinks that he is in [place], requested to be discharged. No eye contact. The patient was falling asleep during the interview. Speech was rumbling. Mood: Patient was not ab le to describe his mood. Thought process is disorganized. Thought content: The patient denied visu al, auditory, tactile hallucinations, but patient deemed to be psychotic and seeing people and disori ented. The patient denied thoughts of harming himself or others. Insight and judgment are impaired at present moment. Impulses are unpredictable. IMPRESSION: Most likely the patient has hypoactive, hyperactive delirium which is related to alcohol withdrawal, alcohol delirium tremens. The patient also has a history of substance abuse, opioids po sitive in the urine. Alcohol use disorder, multiple medical issues. The patient is currently in ICU . PLAN: Continue current management. Continue current medications. This display card writer will implement Geodon . The patient should be on multivitamins, thiamine and folic acid. The patient should be on 1:1 bec ause patient is high elopement risk and high risk of falls. In case of patient's will be antago nizing patient or threatening staff, security needs to be called and escort the patient's from [facility]. If patient's does not have any behavioral disturbances and not antagonizing patien t, she should be allowed to stay next to the . Meanwhile, Dr. Villela will be following patient over this weekend. Case was discussed with Dr. Lowe. Should you have any questions, give me a call back. Kanwal Rushing MD cc: [id number] TT: 10/30/2016 15:39:13 Confirmation # [id number] Dictation # [id number] jn
--- NOTE | 2016-10-30 19:31 | PN ---
DATE: 10/30/2016 Seen and examined at the bedside this afternoon. The patient is on 1:1. The patient was very agitat ed last night, pulling out his ____ stent. Currently he is calm in the bed. No reports of overt GI bleed. Tolerating oral intake, moving his bowels. He did go for head CT last night and it was negat benny. VITAL SIGNS: Temperature 97.9, blood pressure is 152/75, pulse rate 75, respirations 22, 100 on room air. LABORATORY DATA: WBC is 8.2, H and H is 16.1 and 44.8, platelets 190. Sodium 139, K is 3.1, BUN 15, creatinine is 0.6. Total bilirubin 1.6, AST 50, ALT 93, alkaline phosphatase is 61. PHYSICAL EXAMINATION: HEENT: Sclerae anicteric. NECK: Supple. CARDIAC: S1, S2. LUNGS: Decreased breath sounds. Good aeration, no rales or wheeze. ABDOMEN: With bowel sounds, soft, nontender. No rebound or guarding. EXTREMITIES: No edema, no calf tenderness. NEUROLOGIC: The patient is awake, alert, and oriented. ASSESSMENT: A 51-year-old male with history of drug and ETOH abuse, came with complaints of intracta ble vomiting. He is also going through alcohol withdrawal symptoms, noted to have elevated liver fun ction tests, likely secondary to ETOH, it is improving. Abdominal ultrasound done shows diffuse fatt y infiltration. CT scan showing bilateral nonobstructing stones and a pulmonary nodule, stable since 2012. Other comorbidities: Hypertension and hyperlipidemia. PLAN: Continue diet as tolerated, trend LFTs. He did have hepatitis panel, it was negative. The josé miguel conte is on Librium. He is also on Precedex, PPI. He is on Geodon p.r.n. The patient was seen and case discussed with Dr. Quinn. Tiffanie Anika MITCHELL cc: [phone] TT: 10/30/2016 19:30:31 Confirmation # [id number] Dictation # [id number] reanna
[2016-10-30] MEDS ORDERED: Midazolam 2 MG/2 ML VIAL ONE (19:36)
[2016-10-30] MEDS ORDERED: Midazolam 5 MG/5 ML VIAL ONE (19:38)
[2016-10-30] MEDS: Morphine 2 mg/ml ISec IVP PRN (21:46)
[2016-10-31] MEDS: Morphine 2 mg/ml ISec IVP PRN ×4 (01:21→19:46)
[2016-10-31] MEDS: Dexmedetomidine HCl 4mcg/ml 400 MCG/100 ML BOTTLE IV PRN ×2 (03:14→09:37)
[2016-10-31 05:27] LABS: ADD MANUAL DIFF? NO
[2016-10-31 05:49] LABS: HEMATOCRIT 41.5 % (42.0-52.0); MEAN CELL VOLUME 91.8 fL (80.0-105.0)
[2016-10-31 05:50] LABS: MEAN CORPUSCULAR HGB CONC 34.9 g/dl (31.0-37.0); MEAN PLATELET VOLUME 10.8 fl (7.0-11.0); PLATELET COUNT 169 10^3/uL (120.0-450.0); RED CELL DISTRIBUTION WIDTH 10.8 % (11.5-14.5)
[2016-10-31 05:52] LABS: BASO # 0.02 K/mm3 (0.0-2.0); BASO % 0.2 % (0.0-3.0); EOS # 0.1 (0.0-0.7); EOS % 1.6 % (1.5-5.0); GRAN # 5.01 (1.4-6.5); GRAN % 62.2 % (50.0-68.0); LYMPH # 1.8 (1.2-3.4); LYMPH % 22.4 % (22.0-35.0); MONO # 1.1 (0.1-0.6); MONO % 13.2 % (1.0-6.0)
[2016-10-31 05:57] LABS: ALB/GLOB RATIO 1.1 (1.1-1.8); ALKALINE PHOSPHATASE 59 U/L (38-133); ALT/SGPT 94 U/L (7-56); AST/SGOT 51 U/L (15-59); BILIRUBIN,TOTAL 1.8 mg/dL (0.2-1.3); BLOOD UREA NITROGEN 15 mg/dL (7-21); CALCIUM 9.2 mg/dL (8.4-10.5); CARBON DIOXIDE 28 mmol/L (21-33); CHLORIDE 99 mmol/L (98-107); GFR AFRICAN-AMERICAN > 60; GLUCOSE,RANDOM 105 mg/dL (70-110); SODIUM 134 mmol/L (132-148); TOTAL PROTEIN 7.4 g/dL (5.8-8.3)
[2016-10-31] MEDS ORDERED: Potassium Chloride 40 mEq/30 ml LIQ UD PO STA (06:33)
[2016-10-31] MEDS ORDERED: Albuterol-Ipratrop 3 mg / 0.5 (3 ml) UD IH PRN (08:37)
--- NOTE | 2016-10-31 08:44 | PN ---
DATE: 10/31/2016 SUBJECTIVE: The patient is resting in bed, alert and awake. No complaints of agitation this morning . No complaints of active abdominal pain, no diarrhea, no nauseousness or vomiting. The patient sta lori that he is feeling much better and is ready to go home. No fever, chills. The patient continues to be on IV Precedex and is getting treatment for DTs. PHYSICAL EXAMINATION: VITAL SIGNS: Note that his temperature is 99.1, pulse is 59, respirations are 18, and BP is 132/68. SKIN: Warm and dry. HEAD: Atraumatic, normocephalic. EYES: Reactive to light. EARS, NOSE AND THROAT: Seem to be within normal limits. NECK: Supple. No JVD, no thyroid enlargement, no lymph nodes. HEART: Has a regular rate and rhythm. Normal S1, S2. LUNGS: Reveal good breath sounds bilaterally. ABDOMEN: Soft, nontender. Normal bowel sounds. No organomegaly noted. GENITALIA AND RECTAL: Deferred. MUSCULOSKELETAL: No joint deformities. EXTREMITIES: Reveal trace lower extremity edema. NEUROLOGIC: He seems to be grossly intact. LABORATORY DATA: His white count is 8.0, hemoglobin is 14.5, hematocrit 41.5 with platelets of 169,0 00. Sodium is 134, potassium 3.0, chloride 99, CO2 of 28 with a BUN of 15, creatinine 0.9 and a gluc ose of 105. IMPRESSION: The patient has history of ETOH abuse and presents with acute abdominal pain felt to be secondary to possible gastritis. The patient does, on abdominal and pelvic CT scan, have bilateral nonobstructing renal stones. He has noted a fatty liver as well. The patient developed delirium ramses mens and is tolerating treatment for that at this time. PLAN: we will continue with patient's treatment for DTs. The patient is getting Phenergan for nause ousness and vomiting and is getting Lipitor for the hypercholesterolemia. The patient also carries a diagnosis of hypertension. As far as following the patient, we will continue to treat aggressively and follow closely along with the other consultants and the primary care doctor. Don Leyva MD cc: [id number] TT: 10/31/2016 08:43:30 Confirmation # [id number] Dictation # [id number] tn
[2016-10-31] MEDS: Multivitamin With Minerals Tab PO SCH (09:06)
--- NOTE | 2016-10-31 10:19 | CON ---
DATE: 10/31/2016 SUBJECTIVE: The patient is a 51-year-old male with a history of alcohol dependency as well as opioid abuse. The patient was admitted to the ICU for DTs and psychiatry was called for evaluati on of change in mental status as patient was combative, needed to be restrained with multiple code gr ays called earlier. The patient was seen by Dr. Rushing yesterday. I reviewed her notes and laxmi t patient at bedside. The patient was noted to be sedated and disoriented yesterday; however, this m orning, he is much more oriented. He is aware of the month, the year, the location. Presently he re ports his mood is "high spirits" and that his anxiety is under control. He denies having any chronic pain, but does report some abdominal tenderness. Denied any hallucinations, suicidal, or homicidal thoughts. The patient's focus was fair as he seemed bright and appropriate and fairly pleasant. Non etheless review of the notes indicate that patient had multiple code dari called for him because of restlessness, agitation, and confusion overnight. The with alternating changes in behavior, an d orientation is quite indicative that the patient is continuing to manifest symptoms of delirium. H e continues to be unpredictable and a danger to himself or others, and cannot be cleared for AMA. VITAL SIGNS: Reviewed by this provider as well as recent labs on the unit. MEDICATIONS: Relevant psychiatric medications include Librium 50 mg q. 6 scheduled, Ativan 2 mg IV q . 2 hours p.r.n., which patient received 3 doses yesterday, and Geodon 20 mg IM q. 8 p.r.n. ASSESSMENT: The patient has delirium which appears to be improving but still present and fluctuating due to his extreme presentations from last night to early this morning. RECOMMENDATIONS: I would continue treating his DTs with Librium as well as Ativan p.r.n. However, p erasmo remember to taper this medication as tolerated. While benzodiazepines can be quite beneficial to treat alcohol withdrawal and related DTs, if they are not tapered adequately during the course of a hospitalization, they can contribute and worsen confusion and disinhibition. Please also use Geodo n when necessary for patient's agitation p.r.n. As noted, the patient is not psychiatrically cleared to leave AMA as he does not have capacity due to current diagnosis of delirium. He is considered to be a danger to himself or others, due to the unpredictability of his confusion, which occurred just a few hours prior and required a code dias at 9:30 p.m. last night, which he was very combative and r estless. Psychiatry will continue to follow up and monitor his progress as well as reviewing notes a nd observe for consistent improvement in his sensorium, which would indicate that the delirium has no t only improved but has also resolved. Griselda Villela MD cc: [id number] TT: 10/31/2016 10:18:09 Confirmation # [id number] Dictation # [id number] jn
[2016-10-31] MEDS ORDERED: Potassium Chloride 20 mEq ER Tab PO STA (12:00)
--- NOTE | 2016-10-31 12:08 | CP.PCM.PN ---
Subjective - Date & Time of Evaluation Date of Evaluation: 10/31/16 Time of Evaluation: 08:00 - Subjective Subjective: patient seen and examined in ICU. Currently patient is alert, awake. Oriented to place and time. Patient had episodes of confusion and agitation last night. Patient was evaluated psychiatrist today. currently denies any pain. Tolerating diet well. Precedex on low dose. Wants Fontanez catheter to be removed. wants to get out of bed. Does not request pain medication. he Told me that I don't have to talk to his . Review of Systems - Constitutional Constitutional: absent: Fever, Chills - EENT Eyes: absent: Blurred Vision Nose/Mouth/Throat: absent: Nasal Congestion - Cardiovascular Cardiovascular: absent: Chest Pain, Chest Pain at Rest - Respiratory Respiratory: Cough - Gastrointestinal Gastrointestinal: absent: Abdominal Pain, Nausea, Vomiting - Genitourinary Genitourinary: absent: Difficulty Urinating, Dysuria, Hematuria - Musculoskeletal Musculoskeletal: absent: Back Pain - Neurological Neurological: Confusion - Psychiatric Psychiatric: Anxiety, Depression - Hematologic/Lymphatic Hematologic: absent: Easy Bleeding, Easy Bruising Objective - Vital Signs/Intake and Output Vital Signs (last 24 hours): Temp Pulse Resp BP Pulse Ox 99.1 F 99 H 25 H 80/47 L 94 L 10/31/16 00:00 10/31/16 11:00 10/31/16 11:00 10/31/16 11:00 10/31/16 08:30 Intake and Output: 10/31/16 10/31/16 06:59 18:59 Intake Total 830.0 105 Output Total 800 Balance 30.0 105 - Medications Medications: Current Medications Albuterol/Ipratropium (Duoneb 3 Mg/0.5 Mg (3 Ml) Ud) 3 ml IH [id number] JHOANA Albuterol/Ipratropium (Duoneb 3 Mg/0.5 Mg (3 Ml) Ud) 3 ml IH Q4H PRN PRN Reason: Shortness of Breath Amlodipine Besylate (Norvasc) 10 mg PO DAILY [facility] Last Admin: 10/31/16 09:06 Dose: 10 mg Atorvastatin Calcium (Lipitor) 20 mg PO 1700 [facility] Last Admin: 10/30/16 17:24 Dose: Not Given Clonidine HCl (Catapres) 0.2 mg PO BID PRN PRN Reason: Systolic Blood Pressure Last Admin: 10/29/16 18:41 Dose: 0.2 mg Folic Acid (Folic Acid) 1 mg PO DAILY [facility] Last Admin: 10/31/16 09:06 Dose: 1 mg Gabapentin (Neurontin) 600 mg PO BID JHOANA PRN Reason: Protocol Last Admin: 10/31/16 09:05 Dose: 600 mg Dexmedetomidine HCl (Precedex 4 Mcg/Ml (100 Ml)) 400 mcg in 100 mls @ 4.196 mls /hr IV .[id number] PRN; Protocol; 0.2 MCG/KG/HR PRN Reason: Agitation Last Titration: 10/31/16 09:51 Dose: 0 mcg/kg/hr, 0 mls/hr Lisinopril (Zestril) 10 mg PO DAILY [facility] Last Admin: 10/31/16 09:05 Dose: 10 mg Lorazepam (Ativan) 2 mg IVP Q2H PRN; Protocol PRN Reason: Anxiety Last Admin: 10/31/16 10:55 Dose: 2 mg Morphine Sulfate (Morphine) 1 mg IVP Q4H PRN PRN Reason: Pain, severe (8-10) Last Admin: 10/31/16 05:45 Dose: 1 mg Multivitamins/Minerals (Therapeutic-M Tab) 1 tab PO DAILY [facility] Last Admin: 10/31/16 09:06 Dose: 1 tab Nicotine (Nicoderm Cq) 1 patch TD DAILY [facility] Last Admin: 10/31/16 09:06 Dose: 1 patch Pantoprazole Sodium (Protonix Inj) 40 mg IVP DAILY [facility] Last Admin: 10/31/16 09:06 Dose: 40 mg Promethazine HCl (Phenergan Inj) 25 mg IM Q6H PRN PRN Reason: Nausea/Vomiting Last Admin: 10/28/16 05:52 Dose: 25 mg Thiamine HCl (Vitamin B1 Tab) 100 mg PO DAILY [facility] Last Admin: 10/31/16 09:05 Dose: 100 mg Ziprasidone (Geodon Inj) 20 mg IM Q8H PRN; Protocol PRN Reason: agitation/psychosis - Labs Labs: 10/31/16 05:00 10/31/16 05:00 - Constitutional Appears: Well, Non-toxic - Head Exam Head Exam: NORMAL INSPECTION - Eye Exam Eye Exam: Normal appearance - ENT Exam ENT Exam: Mucous Membranes Moist - Respiratory Exam Respiratory Exam: NORMAL BREATHING PATTERN Additional comments: cough occasionally - Cardiovascular Exam Cardiovascular Exam: REGULAR RHYTHM - GI/Abdominal Exam GI & Abdominal Exam: Normal Bowel Sounds - Extremities Exam Extremities Exam: absent: Pedal Edema - Back Exam Back Exam: absent: CVA tenderness (L), CVA tenderness (R) - Neurological Exam Neurological Exam: Alert - Psychiatric Exam Psychiatric exam: Normal Affect Additional comments: agitated on and off - Skin Skin Exam: Normal Color Assessment and Plan - Assessment and Plan (Free Text) Assessment: 1.Patient is a 51-year-old male initially admitted with abdominal pain and nausea and vomiting. CT abdomen and pelvis showed bilateral nonobstructing calculus and fatty lier. patient was treated with IV fluids and IV zofran. Nausea vomiting improved. Pain resolved. GI evaluation appreciated. Continue IV Protonix. 2. History of alcohol abuse; patient is in denial about drug and alcohol problems. Patient in initially denied alcohol use recently. The patient went into delirium tremens and transferred to ICU. 3. Delirium tremens; on IV Ativan. On precedex drip. Still with episodes of confusion on and off. code dias yesterday. Patient is completely alert and awake since this morning. DC Precedex drip. 4. Psychiatric evaluation appreciated. Suggested to continue Geodon and Ativan. patient cannot sign against medical advice today as per psych. Monitor closely till tomorrow. 5.active smoking; currently on NicoDerm patch. smoking cessation is strongly advised. 6. Opiate abuse; patient did not want to disclose the information about how he gets his pain medication prescription. Complete cessation is strongly advised. Follow-up with outpatient rehabilitation program. 7. Continue one-to-one. 8.hypokalemia; po potassium supplementation ordered. Patient was ambulating without any difficulty. Patient removed poultry dresser. Tolerating diet well. Prognosis is poor secondary to alcohol abuse and drug abuse. Upon discharge patient will follow up with PMD Dr. Araiza.
[2016-10-31] MEDS: Albuterol-Ipratrop 3 mg / 0.5 (3 ml) UD IH SCH ×2 (13:32→19:42)
[2016-10-31 17:43] VITALS: O2SAT 98
[2016-11-01] MEDS: Albuterol-Ipratrop 3 mg / 0.5 (3 ml) UD IH SCH ×2 (01:08→07:42)
[2016-11-01] MEDS: Morphine 2 mg/ml ISec IVP PRN (01:48)
[2016-11-01 02:46] VITALS: RESP 18; TEMP 98.3
[2016-11-01 05:20] LABS: ADD MANUAL DIFF? NO
[2016-11-01 05:24] LABS: BASO # 0.01 K/mm3 (0.0-2.0); BASO % 0.1 % (0.0-3.0); EOS # 0.1 (0.0-0.7); EOS % 1.4 % (1.5-5.0); GRAN # 4.87 (1.4-6.5); GRAN % 67.1 % (50.0-68.0); HEMATOCRIT 39.2 % (42.0-52.0); LYMPH # 1.4 (1.2-3.4); LYMPH % 19.7 % (22.0-35.0); MEAN CELL VOLUME 92.9 fL (80.0-105.0); MEAN CORPUSCULAR HEMOGLOBIN 32.5 pg (25.0-35.0); MEAN CORPUSCULAR HGB CONC 34.9 g/dl (31.0-37.0); MEAN PLATELET VOLUME 10.1 fl (7.0-11.0); MONO # 0.9 (0.1-0.6); MONO % 11.7 % (1.0-6.0); PLATELET COUNT 173 10^3/uL (120.0-450.0); RED CELL DISTRIBUTION WIDTH 12.3 % (11.5-14.5); WHITE BLOOD COUNT 7.3 10^3/ul (4.5-11.0)
[2016-11-01 05:36] LABS: ALB/GLOB RATIO 1.1 (1.1-1.8); ALKALINE PHOSPHATASE 70 U/L (38-133); ALT/SGPT 86 U/L (7-56); AST/SGOT 40 U/L (15-59); BILIRUBIN,TOTAL 1.2 mg/dL (0.2-1.3); BLOOD UREA NITROGEN 12 mg/dL (7-21); CALCIUM 9.3 mg/dL (8.4-10.5); CARBON DIOXIDE 27 mmol/L (21-33); CHLORIDE 99 mmol/L (98-107); GFR AFRICAN-AMERICAN > 60; GLUCOSE,RANDOM 108 mg/dL (70-110); POTASSIUM 3.2 mmol/L (3.6-5.0); SODIUM 136 mmol/L (132-148); TOTAL PROTEIN 7.4 g/dL (5.8-8.3)
[2016-11-01] MEDS: Multivitamin With Minerals Tab PO SCH (07:52)
[2016-11-01 07:56] VITALS: BP 130/54; PULSE 80
--- NOTE | 2016-11-01 13:06 | CON ---
DATE: 11/01/2016 The patient is a 51-year-old white male with a history of alcohol dependency as well as opioid abuse, who was admitted to the ICU for DTs and psychiatry has been following up with patient to ensure that delirium is resolving. The patient has a history of being combative and completely disoriented 2 da ys ago and with multiple code dari interim. Initially, the code dari appeared to be secondary to d isorientation. However, as hospitalization progressed, it appeared that patient's code dari were mo re volitional as he was getting impatient with continued hospitalization. The patient had requested to be discharged AMA as he indicated that he was feeling much better and did not feel like that he ne eded any further hospitalization. I met with patient at bedside yesterday and today. He presented t o be consistently alert, oriented x 3, recalls me from our visit yesterday. He recalls me, he knows the current month, date, year, location, reason for hospitalization. Denies any depression or anxiet y. He is future orientated. We discussed his daughter's upcoming prom this year and patient general ly reports is future oriented and hopeful about things. He is coherent and responses are consistentl y relevant. Delusions were not elicited. He is not hallucinating and he seems to be bright and appr opriate and fairly pleasant consistent with his report. His insight appears to be fair and consisten tly good since yesterday. Judgment regarding his code dari was impaired. However, patient, when ed ucated about our concerns, calmed down and there were no further behavioral incidences while he was i n the ICU. ASSESSMENT: Delirium, appears to be resolved at this time. RECOMMENDATIONS: At this time, patient still wants to be discharged and at this time, psychiatricall y this provider has no concerns considering his improved mental status is sustained and delirium appe ars to be resolved. If he is discharged against medical advice, he does know the consequences and th e risks and can express these consequences and risks and reasons for discharge consistently and ratio wanda. There is no indication for psychiatric transfer to the psychiatric unit. He is not a danger to himself or others, and mental status changes were generally secondary to delirium and evolved into maladaptive responses to not being able to be discharged yesterday. Psychiatry will sign off at thi s time. Griselda Villela MD cc: [id number] TT: 11/01/2016 13:06:01 Confirmation # [id number] Dictation # [id number] en
--- NOTE | 2016-11-01 16:55 | CP.PCM.DIS ---
Provider - Provider Date of Admission: 10/28/16 01:18 Attending physician: Ofelia Sullivan MD Time Spent in preparation of Discharge (in minutes): 35 Hospital Course - Lab Results Lab Results: Micro Results 10/29/16 02:25 Nose MRSA Culture (Admit) - Final MRSA NOT DETECTED Most Recent Lab Values WBC 7.3 10^3/ul (4.5-11.0) 11/01/16 05:00 RBC 4.22 10^6/uL (3.5-6.1) 11/01/16 05:00 Hgb 13.7 gm/dL (14.0-18.0) L 11/01/16 05:00 Hct 39.2 % (42.0-52.0) L 11/01/16 05:00 MCV 92.9 fL (80.0-105.0) 11/01/16 05:00 MCH 32.5 pg (25.0-35.0) 11/01/16 05:00 MCHC 34.9 g/dl (31.0-37.0) 11/01/16 05:00 RDW 12.3 % (11.5-14.5) 11/01/16 05:00 Plt Count 173 10^3/uL (120.0-450.0) 11/01/16 05:00 MPV 10.1 fl (7.0-11.0) 11/01/16 05:00 Gran % 67.1 % (50.0-68.0) 11/01/16 05:00 Lymph % (Auto) 19.7 % (22.0-35.0) L 11/01/16 05:00 Craven % (Auto) 11.7 % (1.0-6.0) H 11/01/16 05:00 Eos % (Auto) 1.4 % (1.5-5.0) L 11/01/16 05:00 Baso % (Auto) 0.1 % (0.0-3.0) 11/01/16 05:00 Gran # 4.87 (1.4-6.5) 11/01/16 05:00 Lymph # 1.4 (1.2-3.4) 11/01/16 05:00 Craven # 0.9 (0.1-0.6) H 11/01/16 05:00 Eos # 0.1 (0.0-0.7) 11/01/16 05:00 Baso # 0.01 K/mm3 (0.0-2.0) 11/01/16 05:00 Sodium 136 mmol/L (132-148) 11/01/16 05:00 Potassium 3.2 mmol/L (3.6-5.0) L 11/01/16 05:00 Chloride 99 mmol/L (98-107) 11/01/16 05:00 Carbon Dioxide 27 mmol/L (21-33) 11/01/16 05:00 Anion Gap 13 (10-20) 11/01/16 05:00 BUN 12 mg/dL (7-21) 11/01/16 05:00 Creatinine 0.9 mg/dL (0.5-1.4) 11/01/16 05:00 Est GFR ( Amer) > 60 11/01/16 05:00 Est GFR (Non-Af Amer) > 60 11/01/16 05:00 Random Glucose 108 mg/dL (70-110) 11/01/16 05:00 Calcium 9.3 mg/dL (8.4-10.5) 11/01/16 05:00 Phosphorus 4.1 mg/dL (2.5-4.5) 10/30/16 05:35 Magnesium 2.0 mg/dL (1.7-2.2) 10/31/16 08:01 Total Bilirubin 1.2 mg/dL (0.2-1.3) 11/01/16 05:00 Direct Bilirubin 0.5 mg/dL (0.0-0.4) H 10/28/16 06:30 AST 40 U/L (15-59) 11/01/16 05:00 ALT 86 U/L (7-56) H 11/01/16 05:00 Alkaline Phosphatase 70 U/L (38-133) 11/01/16 05:00 Total Protein 7.4 g/dL (5.8-8.3) 11/01/16 05:00 Albumin 4.0 g/dL (3.0-4.8) 11/01/16 05:00 Globulin 3.5 gm/dL 11/01/16 05:00 Albumin/Globulin Ratio 1.1 (1.1-1.8) 11/01/16 05:00 Triglycerides 71 mg/dL (35-160) 10/28/16 06:30 Cholesterol 296 mg/dL (130-200) H 10/28/16 06:30 LDL Cholesterol Direct 124 mg/dL (0-129) 10/28/16 06:30 HDL Cholesterol 156 mg/dL (29-60) H 10/28/16 06:30 Lipase 83 U/L (23-300) 10/27/16 23:40 Urine Color Yellow (YELLOW) 10/28/16 04:25 Urine Appearance Clear (CLEAR) 10/28/16 04:25 Urine pH 7.0 (4.7-8.0) 10/28/16 04:25 Ur Specific [place] 1.020 (1.005-1.035) 10/28/16 04:25 Urine Protein Trace mg/dL (<30 mg/dL) H 10/28/16 04:25 Urine Glucose (UA) Negative mg/dL (NEGATIVE) 10/28/16 04:25 Urine Ketones 40 mg/dL (NEGATIVE) H 10/28/16 04:25 Urine Blood Negative (NEGATIVE) 10/28/16 04:25 Urine Nitrate Negative (NEGATIVE) 10/28/16 04:25 Urine Bilirubin Negative (NEGATIVE) 10/28/16 04:25 Urine Urobilinogen 0.2 E.U./dL (<1 E.U./dL) 10/28/16 04:25 Ur Leukocyte Esterase Negative Carrie/uL (NEGATIVE) 10/28/16 04:25 Urine RBC 0 - 2 /hpf (0-2) 10/28/16 04:25 Urine WBC 0 - 2 /hpf (0-6) 10/28/16 04:25 Ur Epithelial Cells 0 - 2 /hpf (0-5) 10/28/16 04:25 Urine Opiates Screen Positive (NEGATIVE) H 10/28/16 04:25 Urine Methadone Screen Negative (NEGATIVE) 10/28/16 04:25 Ur Barbiturates Screen Negative (NEGATIVE) 10/28/16 04:25 Ur Phencyclidine Scrn Negative (NEGATIVE) 10/28/16 04:25 Ur Amphetamines Screen Negative (NEGATIVE) 10/28/16 04:25 U Benzodiazepines Scrn Negative (NEGATIVE) 10/28/16 04:25 U Oth Cocaine Metabols Negative (NEGATIVE) 10/28/16 04:25 U Cannabinoids Screen Negative (NEGATIVE) 10/28/16 04:25 Alcohol, Quantitative < 10 mg/dL (0-10) 10/29/16 06:00 Hepatitis A IgM Ab Negative (NEGATIVE) 10/28/16 16:40 Hep Bs Antigen Negative (NEGATIVE) 10/28/16 16:40 Hep B Core IgM Ab Negative (NEGATIVE) 10/28/16 16:40 Hepatitis C Antibody Negative (NEGATIVE) 10/28/16 16:40 - Hospital Course Hospital Course: 1.Patient is a 51-year-old male initially admitted with abdominal pain and nausea and vomiting. CT abdomen and pelvis showed bilateral nonobstructing calculus and fatty lier. patient was treated with IV fluids and IV zofran. Nausea vomiting improved. Pain resolved. GI evaluation appreciated. Continue IV Protonix. Tolerating diet well. 2. History of alcohol abuse; patient is in denial about drug and alcohol problems. Delirium tremens resolved. 3. Delirium tremens; resolved.on IV Ativan prn only. Patient is completely alert and awake since this morning. 4. Psychiatric evaluation appreciated. Patient is cleared for discharge. 5.active smoking; currently on NicoDerm patch. smoking cessation is strongly advised. 6. Opiate abuse; patient did not want to disclose the information about how he gets his pain medication prescription. Complete cessation is strongly advised. Follow-up with outpatient rehabilitation program. Patient was ambulating without any difficulty. Tolerating diet well. Prognosis is poor secondary to alcohol abuse and drug abuse. Discharge home today. Upon discharge patient will follow up with PMD Dr. Araiza. Diagnosis; Nausea or vomiting Alcohol abuse Delirium tremens Opiate abuse Active smoking Noncompliance with follow-up Discharge Exam - Head Exam Head Exam: NORMAL INSPECTION Discharge Plan - Discharge Medications Prescriptions: Lorazepam [Ativan] 0.5 mg PO BID #6 tab Nicotine 14 mg/24 hr [Nicoderm CQ] 1 each TD DAILY #10 patch Pantoprazole Sodium [Protonix] 40 mg PO DAILY #30 ect - Follow Up Plan Condition: STABLE Disposition: HOME/ ROUTINE Instructions: Abuse of Alcohol (DC), Abdominal Pain (ED) Additional Instructions: 1. Follow up with PMD DR. Araiza in 3 days,. 2. Stop alcohol abuse. 3. Stop opiate abuse. 4. Stop smpking. 4. Follow up with urology as outpatient. 5. Follow up with psychiatry per PMD.
== END 2016-11-01 08:45 | disposition home or self-care (01) | DRG 744 ==
LOC: ED 22:30 → OBSVTOIN 10-28 01:18 → ERH 10-28 01:18 → 5RNO 10-28 04:01 → 2RSO 10-28 20:38 → CCU 10-29 02:06
PROVIDERS: ADMIT Internal Medicine; ATTEND Internal Medicine
DX: F10.231 Alcohol dependence with withdrawal delirium (principal); E87.6 Hypokalemia; F11.10 Opioid abuse, uncomplicated; K76.0 Fatty (change of) liver, not elsewhere classified; N20.0 Calculus of kidney; K29.70 Gastritis, unspecified, without bleeding; I10 Essential (primary) hypertension; E78.5 Hyperlipidemia, unspecified; Y90.0 Blood alcohol level of less than 20 mg/100 ml; F17.200 Nicotine dependence, unspecified, uncomplicated; R91.1 Solitary pulmonary nodule; Z91.19 Patient's noncompliance with other medical treatment and regimen; Z78.1 Physical restraint status

== ENCOUNTER 2017-09-04 03:48 | Emergency (ER) | payer MEDICAID ==
[2017-09-04 03:56] VITALS: BMI 25.7
[2017-09-04 03:58] VITALS: RESP 18; TEMP 98.2; O2SAT 99
--- NOTE | 2017-09-04 04:55 | ED PDOC ---
Arrival/HPI <Nilo Carlos DO - Last Filed: 09/04/17 05:09> - General Historian: Patient - History of Present Illness Time/Duration: 1-3 hours Symptom Onset: Sudden Symptom Course: Resolved Quality: Aching <SariAshanti soaresn - Last Filed: 09/04/17 05:46> - General Chief Complaint: Chest Pain Time Seen by Provider: 09/04/17 03:55 - History of Present Illness Narrative History of Present Illness (Text): 09/04/17 04:45 52M no relevant pmhx presents to [facility] ED after having a couple of beers, shoveling snow at 0200 (2hrs ago). Patient felt sharp stinging sensation going down left arm originating from left cortes. Patient currently denies having LUE pain or numbness at this time. Currently neurovascular intact Denies: fevers, chills, headaches, nausea, vomiting, diarrhea, loss in urinary or bowel function. PMH: Nephrolithiasis ALL: NKDA SocialHx: ETOH use, 1ppd x 30+ years (Chiki Kim) Past Medical History - Provider Review Nursing Documentation Reviewed: Yes - Travel History Have you recently traveled outside [place] w/in the past 3 mons?: No - Past History Past History: No Previous - Infectious Disease Hx of Infectious Diseases: None - Tetanus Immunization Tetanus Immunization: Unknown - Cardiac Hx Hypertension: Yes - Pulmonary Hx Asthma: No Hx Bronchitis: No Hx Chronic Obstructive Pulmonary Disease (COPD): No Hx Emphysema: No - Neurological Hx Alzheimer's Disease: No HX Cerebrovascular Accident: No Hx Dementia: No Hx Migraine: No Hx Parkinson's Disease: No Hx Seizures: No Hx Transient Ischemic Attacks (TIA): No - HEENT Hx HEENT Disorder: No Hx Blind: No Hx Cataracts: No Hx Deafness: No Hx Difficulty Chewing: No Hx Epistaxis: No Hx Glaucoma: No Hx Macular Degeneration: No - Renal Hx Renal Failure: No - Endocrine/Metabolic Hx Hyperthyroidism: No Hx Hypothyroidism: No - Hematological/Oncological Hx Anemia: No Hx Cancer: No Hx Hepatitis A: No Hx Hepatitis B: No Hx Hepatitis C: No - Integumentary Hx Dermatological Disorder: No Hx Basal Cell Carcinoma: No Hx Eczema: No Hx Melanoma: No Hx Psoriasis: No Hx Squamous Cell Carcinoma: No - Musculoskeletal/Rheumatological Hx Arthritis: No - Gastrointestinal Hx Crohn's Disease: No Hx Diverticulitis: No Hx Gastroesophageal Reflux: No Hx Liver Failure: No - Genitourinary/Gynecological Hx Genitourinary Disorders: No Hx Hematuria: No Hx Incontinence: No Hx Prostate Problems: No Hx Sexually Transmitted Diseases: No Hx Urinary Tract Infection: No - Psychiatric Hx Depression: No Hx Emotional Abuse: No Hx Physical Abuse: No Hx Substance Use: Yes - Surgical History Hx Amputation: No Hx Appendectomy: No Hx Cholecystectomy: No Hx Coronary Stent: No - Anesthesia Hx Anesthesia: No - Suicidal Assessment Feels Threatened In Home Enviroment: No <Chiki Kim - Last Filed: 09/04/17 05:46> Family/Social History - Physician Review Nursing Documentation Reviewed: Yes Family/Social History: Other (non-contributory) Smoking Status: Current Some Days Smoker Hx Alcohol Use: Yes Hx Substance Use: Yes Hx Substance Use Treatment: Yes <Chiki Kim - Last Filed: 09/04/17 05:46> Allergies/Home Meds <Nilo Carlos DO - Last Filed: 09/04/17 05:09> <Chiki Kim - Last Filed: 09/04/17 05:46> Allergies/Adverse Reactions: Allergies No Known Allergies Allergy (Verified 12/07/12 21:48) Home Medications: Home Meds Medication Instructions Recorded Confirmed Lisinopril 10 mg PO DAILY 04/23/13 09/04/17 Atorvastatin [Lipitor] 20 mg PO DAILY 08/15/15 09/04/17 Morphine Sulfate [Ms Contin] 30 mg PO DAILY 10/27/16 09/04/17 oxyCODONE [oxyCODONE Immediate 30 mg PO QID 10/27/16 09/04/17 Release Tab] Review of Systems - Physician Review All systems were reviewed & negative as marked: Yes <Nilo Carlos DO - Last Filed: 09/04/17 05:09> - Review of Systems Constitutional: absent: Fatigue, Weight Change, Fevers Eyes: absent: Vision Changes, Photophobia ENT: absent: Hearing Changes, Sore Throat Respiratory: absent: SOB, Cough, Sputum Cardiovascular: absent: Chest Pain, Palpitations, Edema Gastrointestinal: Diarrhea. absent: Abdominal Pain, Nausea, Vomiting Skin: Normal Neurological: Normal. absent: Headache, Dizziness, Focal Weakness Endocrine: Normal Hemo/Lymphatic: Normal. absent: Adenopathy Psychiatric: Normal. absent: Anxiety, Depression <Chiki Kim - Last Filed: 09/04/17 05:46> Physical Exam Vital Signs Reviewed: Yes Temperature: Afebrile Blood Pressure: Normal Pulse: Regular Respiratory Rate: Normal Appearance: Positive for: Well-Appearing, Non-Toxic, Comfortable Pain Distress: None Mental Status: Positive for: Alert and Oriented X 3 - Systems Exam Head: Present: Atraumatic, Normocephalic Extroacular Muscles: Present: EOMI Conjunctiva: Present: Normal Mouth: Present: Moist Mucous Membranes Nose (External): Present: Atraumatic Neck: Present: Normal Range of Motion. No: Meningeal Signs, MIDLINE TENDERNESS , JVD, Lymphadenopathy Respiratory/Chest: Present: Clear to Auscultation, Good Air Exchange. No: Respiratory Distress, Accessory Muscle Use Cardiovascular: Present: Regular Rate and Rhythm, Normal S1, S2. No: Murmurs Abdomen: No: Tenderness, Distention, Peritoneal Signs Back: Present: Normal Inspection. No: CVA Tenderness, Midline Tenderness Upper Extremity: Present: Normal Inspection, Normal ROM, NORMAL PULSES, Neurovascularly Intact, Capillary Refill < 2s, Norm 2-Pt Discrimination, Other ( negative spurlings). No: Cyanosis, Edema, Tenderness, Swelling, Erythema Lower Extremity: Present: Normal Inspection, NORMAL PULSES, Neurovascularly Intact, Capillary Refill < 2 s. No: Edema, CALF TENDERNESS Neurological: Present: GCS=15, Speech Normal Skin: Present: Warm, Dry Psychiatric: Present: Alert <Chiki Kim - Last Filed: 09/04/17 05:46> Vital Signs Temp Pulse Resp BP Pulse Ox 09/04/17 03:51 98.2 F 91 H 18 142/86 99 Medical Decision Making - Lab Interpretations I have reviewed the lab results: Yes <Nilo Carlos DO - Last Filed: 09/04/17 05:09> Re-evaluation Time: 05:40 (Pain free, asx) - Lab Interpretations I have reviewed the lab results: Yes - RAD Interpretation Scorekeeper: ED Physician - EKG Interpretation Interpreted by ED Physician: Yes Type: 12 lead EKG <Chiki Kim - Last Filed: 09/04/17 05:46> ED Course and Treatment: Patient Seen With Resident: In agreement with resident note which contains more details about the patient. Patient was seen and evaluated with resident. Came up with plan and treatment together. 52 year old male presents complaining of sharp stinging sensation going down the left arm originating from the left cortes s/p shoveling 2 hours ago. Plan: -- EKG -- Labs -- Chest X-ray -- Aspirin, Motrin Tab (Nilo Carlos DO) 09/04/17 04:58 - CXR/EKG - CBC/CMP/Trops - Asprin - NSAID- Mortrin (Chiki Kim) - Lab Interpretations Narrative Lab Interpretation (Text): 09/04/17 05:41 No WBC. All labs WNL Trops negative (Chiki Kim) Lab Results: 09/04/17 04:51 09/04/17 04:51 Lab Results 09/04/17 04:51: Sodium 142, Potassium 4.8, Chloride 104, Carbon Dioxide 28, Anion Gap 14, BUN 13, Creatinine 0.7 L, Est GFR ( Amer) > 60, Est GFR ( Non-Af Amer) > 60, Random Glucose 84, Calcium 10.0, Magnesium 2.1, Total Bilirubin 0.6, AST 56, ALT 43, Alkaline Phosphatase 80, Lactate Dehydrogenase 480, Total Creatine Kinase 144, Troponin I < 0.01, Total Protein 7.8, Albumin 4.6, Globulin 3.2, Albumin/Globulin Ratio 1.4 09/04/17 04:51: WBC 5.0 D, RBC 4.23, Hgb 13.9 L, Hct 40.5 L, MCV 95.7, MCH 32.9 , MCHC 34.3, RDW 13.2, Plt Count 214, MPV 10.2, Gran % 41.8 L, Lymph % (Auto) 42.7 H, [place] % (Auto) 10.7 H, Eos % (Auto) 4.4, Baso % (Auto) 0.4, Gran # 2.07, Lymph # (Auto) 2.1, [place] # (Auto) 0.5, Eos # (Auto) 0.2, Baso # (Auto) 0.02 - RAD Interpretation Narrative RAD Interpretations (Text): 09/04/17 05:42 No acute changes in CXR No signs of fx or soft tissue damage (Chiki Kim) Radiology Orders: 09/04/17 03:56 CHEST PORTABLE [RAD] Stat - EKG Interpretation EKG Interpretation (Text): 09/04/17 05:02 NSR- Normal EKG (Chiki Kim) - Medication Orders Current Medication Orders: Discontinued Medications Aspirin (Aspirin) 325 mg PO STAT STA Stop: 09/04/17 03:57 Last Admin: 09/04/17 04:12 Dose: 325 mg Ibuprofen (Motrin Tab) 800 mg PO STAT STA Stop: 09/04/17 04:45 - Scribe Statement The provider has reviewed the documentation as recorded by the Scribe <Nilo Carlos DO - Last Filed: 09/04/17 05:09> <Chiki Kim - Last Filed: 09/04/17 05:46> - Scribe Statement Dayan Nina Provider Scribe Attestation: All medical record entries made by the Scribe were at my direction and personally dictated by me. I have reviewed the chart and agree that the record accurately reflects my personal performance of the history, physical exam, medical decision making, and the department course for this patient. I have also personally directed, reviewed, and agree with the discharge instructions and disposition. (Nilo Carlso DO) Disposition/Present on Arrival <Nilo Carlos DO - Last Filed: 09/04/17 05:09> - Present on Arrival Any Indicators Present on Arrival: No History of DVT/PE: No History of Uncontrolled Diabetes: No Urinary Catheter: No History of Decub. Ulcer: No History Surgical Site Infection Following: None - Disposition Have Diagnosis and Disposition been Completed?: Yes Disposition Time: 05:43 Patient Plan: Discharge <Chiki Kim - Last Filed: 09/04/17 05:46> - Disposition Diagnosis: Neck muscle strain Disposition: HOME/ ROUTINE Condition: GOOD Discharge Instructions (ExitCare): Cervical Muscle Strain (DC) Additional Instructions: Thank you for letting us take care of you today. You were treated for Acute neck muscle strain. The emergency medical care you received today was directed at your acute symptoms. It may take several days for your symptoms to resolve. Return to the Emergency Department if your symptoms worsen, do not improve, or if you have any other problems. Please contact your doctor or call one of the physicians/clinics you have been referred to that are listed on the Patient Visit Information form that is included in your discharge packet. Bring any paperwork you were given at discharge with you along with any medications you are taking to your follow up visit. Our treatment cannot replace ongoing medical care by a primary care provider (PCP) outside of the emergency department. Thank you for allowing the [facility] team to be part of your care today. Xray was performed: A Radiologist will review the ED reading if any change in treatment is needed we will contact you. Referrals: Britt Araiza V, [Primary Care Provider] - Follow up with primary Forms: [employer] (Icelandic)
[2017-09-04 05:08] LABS: BASO # 0.02 K/mm3 (0.0-2.0); BASO % 0.4 % (0.0-3.0); EOS # 0.2 (0.0-0.7); EOS % 4.4 % (1.5-5.0); GRAN # 2.07 (1.4-6.5); GRAN % 41.8 % (50.0-68.0); HEMOGLOBIN 13.9 g/dL (14.0-18.0); LYMPH # 2.1 (1.2-3.4); LYMPH % 42.7 % (22.0-35.0); MEAN CELL VOLUME 95.7 fl (80.0-105.0); MEAN CORPUSCULAR HEMOGLOBIN 32.9 pg (25.0-35.0); MEAN CORPUSCULAR HGB CONC 34.3 g/dl (31.0-37.0); MEAN PLATELET VOLUME 10.2 fl (7.0-11.0); MONO # 0.5 (0.1-0.6); MONO % 10.7 % (1.0-6.0); RBC 4.23 10^6/uL (3.5-6.1); RED CELL DISTRIBUTION WIDTH 13.2 % (11.5-14.5)
[2017-09-04 05:12] LABS: ALB/GLOB RATIO 1.4 (1.1-1.8); ALBUMIN 4.6 g/dL (3.0-4.8); ALT/SGPT 43 U/L (7-56); AST/SGOT 56 U/L (17-59); BLOOD UREA NITROGEN 13 mg/dL (7-21); GFR AFRICAN-AMERICAN > 60; GFR NON-AFRICAN AMERICAN > 60
[2017-09-04 05:22] LABS: TROPONIN I < 0.01 ng/mL
[2017-09-04 05:45] VITALS: BP 136/72; PULSE 82
--- NOTE | 2017-09-04 09:58 | RAD ---
HISTORY: chest pain COMPARISON: 06/07/2013 FINDINGS: LUNGS: No active pulmonary disease. PLEURA: No significant pleural effusion identified, no pneumothorax apparent. CARDIOVASCULAR: Normal. OSSEOUS STRUCTURES: No significant abnormalities. VISUALIZED UPPER ABDOMEN: Normal. OTHER FINDINGS: None. IMPRESSION: No active disease. No significant interval change compared to the prior examination(s).
--- NOTE | 2017-09-04 16:48 | CARD ---
APPROVED REPORT EKG Measurement Heart [id number] <Conclusion> Normal sinus rhythm Normal ECG
== END 2017-09-04 05:54 | disposition home or self-care (01) ==
LOC: ED 03:48
DX: S16.1XXA Strain of muscle, fascia and tendon at neck level, initial encounter (principal); X50.0XXA Overexertion from strenuous movement or load, initial encounter; Y93.H1 Activity, digging, shoveling and raking; Y92.9 Unspecified place or not applicable

== ENCOUNTER 2018-10-23 13:40 | Observation (INO) | payer MEDICAID ==
[2018-10-23] MEDS ORDERED: Sodium Chloride 0.9% 1,000 ML IV STA (13:59)
--- NOTE | 2018-10-23 14:03 | ED PDOC ---
Arrival/HPI - General Chief Complaint: Abdominal Pain Time Seen by Provider: 10/23/18 13:49 Historian: Patient - History of Present Illness Narrative History of Present Illness (Text): 10/23/18 14:00 A 53 year old male, whose past medical history includes chronic kidney stones, presents to the emergency department complaining of multiple episodes of vomiting for the past few days, and abdominal pain starting yesterday described as a burning sensation. Patient reports he does not drink daily. Patient denies any fever, or any other complaints at this time. PMD: Dr. Araiza Time/Duration: 24 hours (abdominal pain started), < week (few days of vomiting) Past Medical History - Provider Review Nursing Documentation Reviewed: Yes - Past History Past History: No Previous - Infectious Disease Hx of Infectious Diseases: None - Tetanus Immunization Tetanus Immunization: Unknown - Cardiac Hx Hypertension: Yes - Pulmonary Hx Asthma: No Hx Bronchitis: No Hx Chronic Obstructive Pulmonary Disease (COPD): No Hx Emphysema: No - Neurological Hx Alzheimer's Disease: No HX Cerebrovascular Accident: No Hx Dementia: No Hx Migraine: No Hx Parkinson's Disease: No Hx Seizures: No Hx Transient Ischemic Attacks (TIA): No - HEENT Hx HEENT Disorder: No Hx Blind: No Hx Cataracts: No Hx Deafness: No Hx Difficulty Chewing: No Hx Epistaxis: No Hx Glaucoma: No Hx Macular Degeneration: No - Renal Hx Renal Failure: No - Endocrine/Metabolic Hx Hyperthyroidism: No Hx Hypothyroidism: No - Hematological/Oncological Hx Anemia: No Hx Cancer: No Hx Hepatitis A: No Hx Hepatitis B: No Hx Hepatitis C: No - Integumentary Hx Dermatological Disorder: No Hx Basal Cell Carcinoma: No Hx Eczema: No Hx Melanoma: No Hx Psoriasis: No Hx Squamous Cell Carcinoma: No - Musculoskeletal/Rheumatological Hx Arthritis: No - Gastrointestinal Hx Gastritis: Yes - Genitourinary/Gynecological Hx Genitourinary Disorders: No Hx Hematuria: No Hx Incontinence: No Hx Prostate Problems: No Hx Sexually Transmitted Diseases: No Hx Urinary Tract Infection: No - Psychiatric Hx Depression: No Hx Emotional Abuse: No Hx Physical Abuse: No Hx Substance Use: Yes - Surgical History Hx Amputation: No Hx Appendectomy: No Hx Cholecystectomy: No Hx Coronary Stent: No Other/Comment: foot sx - Anesthesia Hx Anesthesia: Yes Hx Anesthesia Reactions: No Hx Malignant Hyperthermia: No - Suicidal Assessment Feels Threatened In Home Enviroment: No Family/Social History - Physician Review Nursing Documentation Reviewed: Yes Family/Social History: No Known Family HX Smoking Status: Current Some Days Smoker Hx Alcohol Use: Yes Hx Substance Use: Yes Hx Substance Use Treatment: Yes Allergies/Home Meds Allergies/Adverse Reactions: Allergies No Known Allergies Allergy (Verified 10/23/18 13:57) Home Medications: Home Meds Medication Instructions Recorded Confirmed Albuterol Sulfate [Ventolin Hfa] 2 puff IH Q4H 10/24/18 10/24/18 Atorvastatin [Lipitor] 40 mg PO DAILY 10/24/18 10/24/18 Benazepril/Hydrochlorothiazide 1 tab PO DAILY 10/24/18 10/24/18 [Benazepril-Hctz 20-12.5 mg Tab] Clonazepam [Klonopin] 0.5 mg PO BID 10/24/18 10/24/18 Gabapentin [Neurontin] 300 mg PO BID 10/24/18 10/24/18 HYDROmorphone [Dilaudid] 8 mg PO BID 10/24/18 10/24/18 PARoxetine [Paxil] 20 mg PO DAILY 10/24/18 10/24/18 Sertraline [Zoloft] 50 mg PO DAILY 10/24/18 10/24/18 oxyCODONE [oxyCODONE Immediate 30 mg PO TID 10/24/18 10/24/18 Release Tab] Review of Systems - Physician Review All systems were reviewed & negative as marked: Yes - Review of Systems Constitutional: absent: Fevers Gastrointestinal: Abdominal Pain (burning sensation), Vomiting (multiple episodes for the past few days) Physical Exam Vital Signs Reviewed: Yes Vital Signs Temp Pulse Resp BP Pulse Ox 10/23/18 13:52 98.6 F 80 18 158/88 H 98 Temperature: Afebrile Blood Pressure: Normal Pulse: Regular Respiratory Rate: Normal Appearance: Positive for: Non-Toxic, Other (anxious appearing.) Pain Distress: None Mental Status: Positive for: Alert and Oriented X 3 - Systems Exam Head: Present: Atraumatic, Normocephalic Pupils: Present: PERRL Extroacular Muscles: Present: EOMI Conjunctiva: Present: Normal Mouth: Present: Moist Mucous Membranes Neck: Present: Normal Range of Motion Respiratory/Chest: Present: Clear to Auscultation, Good Air Exchange. No: Respiratory Distress, Accessory Muscle Use Cardiovascular: Present: Regular Rate and Rhythm, Normal S1, S2. No: Murmurs Abdomen: Present: Tenderness (epigastric tenderness). No: Distention, Peritoneal Signs Back: Present: Normal Inspection Upper Extremity: Present: Normal Inspection. No: Cyanosis, Edema Lower Extremity: Present: Normal Inspection. No: Edema Neurological: Present: GCS=15, CN II-XII Intact, Speech Normal Skin: Present: Warm, Dry, Normal Color. No: Rashes Psychiatric: Present: Alert, Oriented x 3, Anxious Medical Decision Making ED Course and Treatment: 10/23/18 14:03 Impression: 53 year old male with multiple episodes of vomiting and burning abdominal pain. Physical exam shows epigastric tenderness and anxious appearing. Plan: -- Abd/Pelvis CT -- Labs -- Zofran -- IV Fluids -- Protonix -- Urinalysis -- Reassess and disposition Progress Notes: 10/23/2018 15:30 Abd/Pelvis CT IMPRESSION: No acute abdominal pelvic pathology. No evidence of small-bowel obstruction. Bilateral non-obstructive renal calculi without hydroureteronephrosis or evidence of recently passed genitourinary calculus. Dictator: Triston Platt MD 10/24/18 16:53 highc lincial suspion for narcotic w/d. labs neg. lft baseline, ct neg. pt [facility] feels unwell for dc accepted dr landry for obs. - Scribe Statement The provider has reviewed the documentation as recorded by the Ashish Simmons Provider Scribe Attestation: All medical record entries made by the Scribe were at my direction and personally dictated by me. I have reviewed the chart and agree that the record accurately reflects my personal performance of the history, physical exam, medical decision making, and the department course for this patient. I have also personally directed, reviewed, and agree with the discharge instructions and disposition. Disposition/Present on Arrival - Present on Arrival Any Indicators Present on Arrival: No History of DVT/PE: No History of Uncontrolled Diabetes: No Urinary Catheter: No History of Decub. Ulcer: No History Surgical Site Infection Following: None - Disposition Have Diagnosis and Disposition been Completed?: Yes Diagnosis: Abdominal pain Disposition: HOSPITALIZED Disposition Time: 13:00 Condition: STABLE
[2018-10-23 14:25] LABS: BASO # 0.01 K/mm3 (0.0-2.0); BASO % 0.2 % (0.0-3.0); EOS % 0.2 % (1.5-5.0); LYMPH # 1.1 (1.2-3.4); LYMPH % 19.4 % (22.0-35.0); MEAN CELL VOLUME 94.4 fl (80.0-105.0); MEAN CORPUSCULAR HEMOGLOBIN 33.5 pg (25.0-35.0); MEAN CORPUSCULAR HGB CONC 35.5 g/dl (31.0-37.0); MEAN PLATELET VOLUME 10.7 fl (7.0-11.0); MONO # 0.5 (0.1-0.6); MONO % 8.5 % (1.0-6.0); RBC 4.98 10^6/uL (3.5-6.1); RED CELL DISTRIBUTION WIDTH 12.3 % (11.5-14.5); WHITE BLOOD COUNT 5.4 10^3/uL (4.5-11.0)
[2018-10-23 14:26] LABS: HEMOGLOBIN 16.7 g/dL (14.0-18.0)
[2018-10-23 14:38] LABS: ALB/GLOB RATIO 1.4 (1.1-1.8); ALBUMIN 5.2 g/dL (3.0-4.8); ALT/SGPT 118 U/L (7-56); AST/SGOT 74 U/L (17-59); BILIRUBIN,DIRECT 0.1 mg/dL (0.0-0.4); BLOOD UREA NITROGEN 15 mg/dL (7-21); CALCIUM 11.2 mg/dL (8.4-10.5); GFR NON-AFRICAN AMERICAN > 60; LIPASE 111 U/L (23-300)
[2018-10-23 14:41] LABS: INR 1.09; PARTIAL THROMBOPLASTIN TIME 27.3 Seconds (26.9-38.3); PROTHROMBIN TIME 12.1 SECONDS (9.4-12.5)
[2018-10-23] MEDS ORDERED: Iohexol 350 MG/100 ML VIAL ONE (14:52)
[2018-10-23 15:59] LABS: URINE BILIRUBIN NEGATIVE (NEGATIVE); URINE BLOOD NEGATIVE (NEGATIVE); URINE GLUCOSE (UA) NEGATIVE (NEGATIVE); URINE LEUKOCYTE ESTERASE NEGATIVE Leu/uL (NEGATIVE); URINE PROTEIN NEGATIVE mg/dL (<30 mg/dL); URINE UROBILINOGEN 0.2 E.U./dL (<1 E.U./dL)
[2018-10-23 16:00] LABS: URINE APPEARANCE CLEAR (CLEAR); URINE COLOR YELLOW (YELLOW)
--- NOTE | 2018-10-23 16:00 | CT ---
Date of service: 10/23/2018 PROCEDURE: CT Abdomen and Pelvis with contrast HISTORY: abd pain/vomiting COMPARISON: CT scan of the abdomen and pelvis dated 10/28/2016 TECHNIQUE: Contrast dose: 100 mL Omnipaque 350 Radiation dose: Total exam DLP = 405.78 mGy-cm. This CT exam was performed using one or more of the following dose reduction techniques: Automated exposure control, adjustment of the mA and/or kV according to patient size, and/or use of iterative reconstruction technique. FINDINGS: LOWER THORAX: Unremarkable. LIVER: Diffuse hepatic steatosis. No gross lesion or ductal dilatation. GALLBLADDER AND BILE DUCTS: Unremarkable. PANCREAS: Unremarkable. No gross lesion or ductal dilatation. SPLEEN: Unremarkable. ADRENALS: Unremarkable. No mass. KIDNEYS AND URETERS: Nonobstructive 3 mm right lower pole calculus. Nonobstructive 8 x 4 mm left lower pole calculus. No hydronephrosis. No solid mass. VASCULATURE: Unremarkable. No aortic aneurysm. No aortic atherosclerotic calcification or mural plaque present. BOWEL: Unremarkable. No obstruction. No gross mural thickening. APPENDIX: Normal appendix. PERITONEUM: Tiny fat containing umbilical hernia. No free fluid. No free air. LYMPH NODES: Unremarkable. No enlarged lymph nodes. BLADDER: Unremarkable. REPRODUCTIVE: Findings suggestive of TURP defect. BONES: Bilateral hips, pubic symphyseal and spinal degenerative changes no acute fracture. OTHER FINDINGS: None. IMPRESSION: No acute abdominal pelvic pathology. No evidence of small-bowel obstruction. Bilateral nonobstructive renal calculi without hydroureteronephrosis or evidence of recently passed genitourinary calculus. Additional findings as above.
[2018-10-23 16:40] LABS: BARBITURATES, UR NEGATIVE (NEGATIVE); BENZODIAZEPINES, UR NEGATIVE (NEGATIVE); OPIATES, UR POSITIVE (NEGATIVE); PHENCYCLIDINE, UR NEGATIVE (NEGATIVE)
--- NOTE | 2018-10-23 17:19 | CP.PCM.HP ---
<Ricardo Camarillo - Last Filed: 10/23/18 21:04> History of Present Illness - History of Present Illness History of Present Illness: Ricardo Camarillo DO PGY1 - Internal Medicine Microfilm Equipment Inspector - Hospitalist H&P CC: N/V Abd Pain x1 day 53M PMH CKD, Nephrolithiasis, EtOH abuse, Opiate abuse presented to [facility] on 10/23 w/ c/o NV + Abd pain x 1 day Patient reported pain began 10/22 PM located diffusely throughout the abdomen w/ radiation into the flank. Pain is described as burning sensation w/ associated N ausea and vomiting. Patient reported that he has not been able to tolerate diet. Cannot recall any inciting factor; denies daily EtOH use however admits to drinking 2-3 beers on the weekend. Denies any fevers, chills, chest pain, sob, diarrhea/constipation at this time. PMH as above PSH: lithotripsy FamHx: Parents at young age - unknown fam hx Pharmacy: [facility] Home Rx: Oxycodone 30 TID, Dilaudid 8mg BID, Lisinopril, Lipitor, Xanaflex, Neurontin - confirm w/ outpt pharmacy Social: 1/2ppd x30 years, 2-3 Beers weekly, Denies illicit drug use Present on Admission - Present on Admission Any Indicators Present on Admission: No Review of Systems - Review of Systems All systems: reviewed and no additional remarkable complaints except Review of Systems: as per HPI Past Patient History - Infectious Disease Hx of Infectious Diseases: None - Tetanus Immunizations Tetanus Immunization: Unknown - Past Social History Smoking Status: Current Some Days Smoker - CARDIAC Hx Hypertension: Yes - PULMONARY Hx Asthma: No Hx Bronchitis: No Hx Chronic Obstructive Pulmonary Disease (COPD): No Hx Emphysema: No - NEUROLOGICAL Hx Alzheimer's Disease: No HX Cerebrovascular Accident: No Hx Dementia: No Hx Migraine: No Hx Parkinson's Disease: No Hx Seizures: No Hx Transient Ischemic Attacks (TIA): No - HEENT Hx HEENT Problems: No Hx Blind: No Hx Cataracts: No Hx Deafness: No Hx Difficulty Chewing: No Hx Epistaxis: No Hx Glaucoma: No Hx Macular Degeneration: No - RENAL Hx Renal Failure: No - ENDOCRINE/METABOLIC Hx Hyperthyroidism: No Hx Hypothyroidism: No - HEMATOLOGICAL/ONCOLOGICAL Hx Anemia: No Hx Cancer: No Hx Hepatitis A: No Hx Hepatitis B: No Hx Hepatitis C: No - INTEGUMENTARY Hx Dermatological Problems: No Hx Basil Cell: No Hx Eczema: No Hx Melanoma: No Hx Psoriasis: No Hx Squamous Cell: No - MUSCULOSKELETAL/RHEUMATOLOGICAL Hx Arthritis: No - GASTROINTESTINAL Hx Gastritis: Yes - GENITOURINARY/GYNECOLOGICAL Hx Genitourinary Disorders: No Hx Hematuria: No Hx Incontinence: No Hx Prostate Problems: No Hx Sexually Transmitted Disorders: No Hx Urinary Tract Infection: No - PSYCHIATRIC Hx Depression: No Hx Emotional Abuse: No Hx Physical Abuse: No Hx Substance Use: Yes - SURGICAL HISTORY Hx Amputation: No Hx Appendectomy: No Hx Cholecystectomy: No Hx Coronary Stent: No Other/Comment: foot sx - ANESTHESIA Hx Anesthesia: Yes Hx Anesthesia Reactions: No Hx Malignant Hyperthermia: No Meds Allergies/Adverse Reactions: Allergies Allergy/AdvReac Type Severity Reaction Status Date / Time No Known Allergies Allergy Verified 10/23/18 13:57 Physical Exam - Constitutional Additional comments: Uncomfortable - Head Exam Head Exam: ATRAUMATIC, NORMOCEPHALIC - Eye Exam Eye Exam: EOMI - Respiratory Exam Respiratory Exam: Clear to Auscultation Bilateral, NORMAL BREATHING PATTERN - Cardiovascular Exam Cardiovascular Exam: RRR. absent: Systolic Murmur - GI/Abdominal Exam GI & Abdominal Exam: Soft. absent: Tenderness - Back Exam Back exam: CVA tenderness (L), CVA tenderness (R) - Neurological Exam Neurological exam: Alert, Oriented x3 - Psychiatric Exam Psychiatric exam: Anxious - Skin Skin Exam: Dry, Intact, Normal Color, Warm Results - Vital Signs Recent Vital Signs: Last Vital Signs Temp 98.6 F 10/23/18 13:52 Pulse 85 10/23/18 15:56 Resp 17 10/23/18 15:56 BP 158/88 H 10/23/18 13:52 Pulse Ox 100 10/23/18 15:56 - Labs Result Diagrams: 10/23/18 13:20 10/23/18 13:20 Labs: Laboratory Results - last 24 hr 10/23/18 10/23/18 10/23/18 13:20 13:20 13:20 WBC 5.4 RBC 4.98 Hgb 16.7 D Hct 47.0 MCV 94.4 MCH 33.5 MCHC 35.5 RDW 12.3 Plt Count 262 MPV 10.7 Neut % (Auto) 71.7 H Lymph % (Auto) 19.4 L [place] % (Auto) 8.5 H Eos % (Auto) 0.2 L Baso % (Auto) 0.2 Lymph # (Auto) 1.1 L [place] # (Auto) 0.5 Eos # (Auto) 0.0 Baso # (Auto) 0.01 Absolute Neuts (auto) 3.87 PT 12.1 INR 1.09 APTT 27.3 Sodium 137 Potassium 5.0 Chloride 100 Carbon Dioxide 21 Anion Gap 20 BUN 15 Creatinine 0.7 L Est GFR ( Amer) > 60 Est GFR (Non-Af Amer) > 60 Random Glucose 174 H Calcium 11.2 H Magnesium 2.1 Total Bilirubin 1.2 Direct Bilirubin 0.1 AST 74 H D ALT 118 H Alkaline Phosphatase 80 Total Protein 8.8 H Albumin 5.2 H Globulin 3.7 Albumin/Globulin Ratio 1.4 Lipase 111 Urine Color Urine Appearance Urine pH Ur Specific [place] Urine Protein Urine Glucose (UA) Urine Ketones Urine Blood Urine Nitrate Urine Bilirubin Urine Urobilinogen Ur Leukocyte Esterase Urine Opiates Screen Urine Methadone Screen Ur Barbiturates Screen Ur Phencyclidine Scrn Ur Amphetamines Screen U Benzodiazepines Scrn U Oth Cocaine Metabols U Cannabinoids Screen Alcohol, Quantitative 10/23/18 10/23/18 10/23/18 13:20 15:50 15:50 WBC RBC Hgb Hct MCV MCH MCHC RDW Plt Count MPV Neut % (Auto) Lymph % (Auto) [place] % (Auto) Eos % (Auto) Baso % (Auto) Lymph # (Auto) [place] # (Auto) Eos # (Auto) Baso # (Auto) Absolute Neuts (auto) PT INR APTT Sodium Potassium Chloride Carbon Dioxide Anion Gap BUN Creatinine Est GFR ( Amer) Est GFR (Non-Af Amer) Random Glucose Calcium Magnesium Total Bilirubin Direct Bilirubin AST ALT Alkaline Phosphatase Total Protein Albumin Globulin Albumin/Globulin Ratio Lipase Urine Color Yellow Urine Appearance Clear Urine pH 8.0 Ur Specific [place] 1.010 Urine Protein Negative Urine Glucose (UA) Negative Urine Ketones 40 H Urine Blood Negative Urine Nitrate Negative Urine Bilirubin Negative Urine Urobilinogen 0.2 Ur Leukocyte Esterase Negative Urine Opiates Screen Positive H Urine Methadone Screen Negative Ur Barbiturates Screen Negative Ur Phencyclidine Scrn Negative Ur Amphetamines Screen Negative U Benzodiazepines Scrn Negative U Oth Cocaine Metabols Negative U Cannabinoids Screen Negative Alcohol, Quantitative < 10 Assessment & Plan - Assessment and Plan (Free Text) Assessment: 53M PMH CKD, Nephrolithiasis, EtOH abuse, Opiate abuse presented to [facility] on 10/23 w/ c/o NV + Abd pain x 1 day. Admitted for intractable nausea and vomiting. Plan: Intractable nausea/ vomiting w/ flank pain: Opiate/ EtOH withdrawal vs Kidney Stone CTAP shows BL renal caliculi non obstructing w/o hydronephrosis UTox positive for opiate UA w/o blood Keep NPO Zofran PRN nausea IVF - NS 100CC/hr Morphine 2Q4 PRN pain CIWA Ativan 2 Q6 JHOANA; 1 Q2 PRN Strain urine Hx HTN / HLD Can resume PO meds when patient can tolerate PO Hydralazine 10 Q6 PRN GI PPX: Protonix DVT PPX: SCD DISPO: Tele due to possible withdrawal; continue inpt obs at this time Patient was seen, examined discussed w/ attending Dr. Meenu Camarillo DO PGY1 - Internal Medicine Microfilm Equipment Inspector - Date & Time Date: 10/23/18 Time: 21:40 <Meenu Camarillo R - Last Filed: 10/24/18 21:30> Results - Vital Signs Recent Vital Signs: Last Vital Signs Temp 98.1 F 10/24/18 12:00 Pulse 76 10/24/18 13:33 Resp 20 10/24/18 12:00 BP 151/87 H 10/24/18 12:00 Pulse Ox 98 10/24/18 06:00 - Labs Result Diagrams: 10/24/18 06:30 10/24/18 06:30 Labs: Laboratory Results - last 24 hr 10/24/18 10/24/18 06:30 06:30 WBC 9.8 D RBC 4.34 Hgb 14.0 D Hct 41.1 L MCV 94.7 MCH 32.3 MCHC 34.1 RDW 12.4 Plt Count 222 MPV 10.9 Neut % (Auto) 76.6 H Lymph % (Auto) 12.4 L [place] % (Auto) 11.0 H Eos % (Auto) 0.0 L Baso % (Auto) 0.0 Lymph # (Auto) 1.2 [place] # (Auto) 1.1 H Eos # (Auto) 0.0 Baso # (Auto) 0.00 Absolute Neuts (auto) 7.53 H Sodium 137 Potassium 3.6 Chloride 102 Carbon Dioxide 24 Anion Gap 14 BUN 15 Creatinine 0.7 L Est GFR ( Amer) > 60 Est GFR (Non-Af Amer) > 60 Random Glucose 111 H Calcium 9.6 Phosphorus 5.3 H Magnesium 2.1 Total Bilirubin 1.0 AST 50 ALT 80 H Alkaline Phosphatase 57 Total Protein 7.8 Albumin 4.4 Globulin 3.4 Albumin/Globulin Ratio 1.3 Attending/Attestation - Attestation I have personally seen and examined this patient.: Yes I have fully participated in the care of the patient.: Yes I have reviewed all pertinent clinical information: Yes Notes (Text): Patient seen and examined by me with resident at 5PM on 10/23/18 in the emergency room. Case including HPI, physical exam, and assessment and plan discussed with resident. Agree with above with following additions/corrections. Patient is a 68-year-old male with past medical history significant for CKD, nephrolithiasis, alcohol abuse, and opiate abuse that presented to the emergency room with abdominal pain, nausea, and vomiting. Patient states that the pain started between 1-2PM yesterday. Patient states that the pain is in the midline of his abdomen and is burning in nature. Patient states he has had multiple episodes on nonbilious, nonbloody vomitus. No associated diarrhea or constipation. No associated fevers or chills. Patient states that he is also having bilateral flank pain and had the same symptoms in the past secondary to kidney stones. Patient states that he drank 2-3 beers 2 days ago and has no change in his diet. He denies any chest pain or shortness of breath. No headaches or dizziness. No burning or pain with urination. 12 point review of systems reviewed by me. Please see above HPI. All other systems negative. Allergies: NKDA Physical exam: General: Awake and alert lying in bed in no acute distress HEENT: Normocephalic, atraumatic. Extraocular muscles intact, pupils equal and reactive, no scleral icterus. Oropharynx is pink and moist. No pharyngeal erythema or exudate appreciated. Neck is supple. Hearing grossly intact. Ears and nose externally unremarkable. Cardiovascular: Regular rhythm.Normal S1 and S2. No murmurs, rubs, or gallops appreciated. Pulmonary: Normal respiratory effort.No rhonchi, rales, or wheezing appreciate d. Gastrointestinal: Soft, nondistended. Positive generalized tenderness. Positive bowel sounds all 4 quadrants. No guarding. Musculoskeletal: Moves all extremities. No calf tenderness. No edema appr eciated. Positive bilateral CVA tenderness. Central nervous system: AAOx3, CN 2-12 grossly intact. No focal deficits. Dermatologic: Skin warm and dry. Assessment and plan: Patient is a 68-year-old male with past medical history significant for CKD, nephrolithiasis, alcohol abuse, and opiate abuse that presented to the emergency room with abdominal pain, nausea, and vomiting. 1. Abdominal pain. Nausea and vomiting. Bilateral CVA tenderness. Patient with a previous history of same symptoms in 2017 secondary to alcohol withdrawal leading to delirium tremens. Symptoms likely secondary to alcohol withdrawal. Placed on morphine prn. CT abd/pelvis per radiologist showed no acute abdominal pelvic pathology, no evidence of small bowel obstruction, bilateral nonobstructive renal calculi without hydroureteronephrosis or evidence of recently passed genitourinary calculus. Pain unlikely from nephrolithiasis. Placed on IV fluids. Placed on Zofran as needed. Placed on IV protonix. Made NPO. 2. Likely alcohol withdrawal. Placed on CIWA protocol. Placed on Ativan. Monitor closely for withdrawal symptoms. 3. Hypertension. Given IV Vasotec. Placed on hydralazine prn. Restart home meds when no longer NPO 4. Chronic opiate use for chronic pain. Patient counseled on cessation. CONSTRUCTION SAFETY CONSULTANT reviewed. Home medications held. Placed on morphine for now for severe pain. 5. Hyperlipidemia. Resume home lipitor when no longer NPO. Case was discussed in detail with patient regarding current diagnosis, test results, and treatment plan. All questions answered.
[2018-10-23] MEDS ORDERED: Multivitamin (MVI) 10 ML, Thiamine 100 MG, Folic Acid 1 MG in Sodium Chloride 0.9% 1,00... IV ONE (17:32)
[2018-10-23] MEDS: Morphine 2 mg/ml ISec IVP PRN ×2 (17:55→22:07)
[2018-10-23] MEDS: Sodium Chloride 0.9% 1,000 ML IV SCH (18:00)
[2018-10-23] MEDS ORDERED: EnalaprilAT 1.25 mg/ml Inj IVP STA ×2 (18:23→18:35)
[2018-10-23 20:49] VITALS: BMI 29.2
[2018-10-24] MEDS: Sodium Chloride 0.9% 1,000 ML IV SCH (04:53)
[2018-10-24 06:03] VITALS: O2SAT 98
[2018-10-24 07:31] LABS: ALB/GLOB RATIO 1.3 (1.1-1.8); ALBUMIN 4.4 g/dL (3.0-4.8); ALT/SGPT 80 U/L (7-56); AST/SGOT 50 U/L (17-59); BLOOD UREA NITROGEN 15 mg/dL (7-21); CALCIUM 9.6 mg/dL (8.4-10.5); GFR NON-AFRICAN AMERICAN > 60
[2018-10-24 07:55] LABS: LYMPH # 1.2 (1.2-3.4); LYMPH % 12.4 % (22.0-35.0); MEAN CELL VOLUME 94.7 fl (80.0-105.0); MEAN CORPUSCULAR HEMOGLOBIN 32.3 pg (25.0-35.0); MEAN CORPUSCULAR HGB CONC 34.1 g/dl (31.0-37.0); MEAN PLATELET VOLUME 10.9 fl (7.0-11.0); MONO # 1.1 (0.1-0.6); RBC 4.34 10^6/uL (3.5-6.1); RED CELL DISTRIBUTION WIDTH 12.4 % (11.5-14.5); WHITE BLOOD COUNT 9.8 10^3/uL (4.5-11.0)
[2018-10-24] MEDS ORDERED: Albuterol HFA 90 mcg/actuation (8 g) IH SCH (10:30)
[2018-10-24] MEDS ORDERED: Albuterol 0.083% Inhal Sol (2.5 mg/3 mL) UD INH PRN (10:38)
[2018-10-24] MEDS ORDERED: Albuterol 0.083% Inhal Sol (2.5 mg/3 mL) UD INH SCH (10:39)
[2018-10-24 12:08] VITALS: BP 151/87; PULSE 76; RESP 20; TEMP 98.1
--- NOTE | 2018-10-24 14:15 | CP.PCM.DIS ---
<Tania Pa - Last Filed: 10/24/18 14:04> Provider - Provider Date of Admission: 10/23/18 16:30 Attending physician: Ofelia Sullivan MD Time Spent in preparation of Discharge (in minutes): 45 Diagnosis - Discharge Diagnosis (1) Alcohol withdrawal Status: Resolved (2) Gastritis Status: Chronic (3) Kidney stone Status: Chronic (4) Abdominal pain Status: Resolved (5) Alcohol abuse Status: Chronic Hospital Course - Lab Results Lab Results: Most Recent Lab Values WBC 9.8 10^3/uL (4.5-11.0) D 10/24/18 06:30 RBC 4.34 10^6/uL (3.5-6.1) 10/24/18 06:30 Hgb 14.0 g/dL (14.0-18.0) D 10/24/18 06:30 Hct 41.1 % (42.0-52.0) L 10/24/18 06:30 MCV 94.7 fl (80.0-105.0) 10/24/18 06:30 MCH 32.3 pg (25.0-35.0) 10/24/18 06:30 MCHC 34.1 g/dl (31.0-37.0) 10/24/18 06:30 RDW 12.4 % (11.5-14.5) 10/24/18 06:30 Plt Count 222 10^3/uL (120.0-450.0) 10/24/18 06:30 MPV 10.9 fl (7.0-11.0) 10/24/18 06:30 Neut % (Auto) 76.6 % (50.0-68.0) H 10/24/18 06:30 Lymph % (Auto) 12.4 % (22.0-35.0) L 10/24/18 06:30 [place] % (Auto) 11.0 % (1.0-6.0) H 10/24/18 06:30 Eos % (Auto) 0.0 % (1.5-5.0) L 10/24/18 06:30 Baso % (Auto) 0.0 % (0.0-3.0) 10/24/18 06:30 Lymph # (Auto) 1.2 (1.2-3.4) 10/24/18 06:30 [place] # (Auto) 1.1 (0.1-0.6) H 10/24/18 06:30 Eos # (Auto) 0.0 (0.0-0.7) 10/24/18 06:30 Baso # (Auto) 0.00 K/mm3 (0.0-2.0) 10/24/18 06:30 Absolute Neuts (auto) 7.53 (1.4-6.5) H 10/24/18 06:30 PT 12.1 SECONDS (9.4-12.5) 10/23/18 13:20 INR 1.09 10/23/18 13:20 APTT 27.3 Seconds (26.9-38.3) 10/23/18 13:20 Sodium 137 mmol/L (132-148) 10/24/18 06:30 Potassium 3.6 mmol/L (3.6-5.0) 10/24/18 06:30 Chloride 102 mmol/L (98-107) 10/24/18 06:30 Carbon Dioxide 24 mmol/L (21-33) 10/24/18 06:30 Anion Gap 14 (10-20) 10/24/18 06:30 BUN 15 mg/dL (7-21) 10/24/18 06:30 Creatinine 0.7 mg/dl (0.8-1.5) L 10/24/18 06:30 Est GFR ( Amer) > 60 10/24/18 06:30 Est GFR (Non-Af Amer) > 60 10/24/18 06:30 Random Glucose 111 mg/dL (70-110) H 10/24/18 06:30 Calcium 9.6 mg/dL (8.4-10.5) 10/24/18 06:30 Phosphorus 5.3 mg/dL (2.5-4.5) H 10/24/18 06:30 Magnesium 2.1 mg/dL (1.7-2.2) 10/24/18 06:30 Total Bilirubin 1.0 mg/dL (0.2-1.3) 10/24/18 06:30 Direct Bilirubin 0.1 mg/dL (0.0-0.4) 10/23/18 13:20 AST 50 U/L (17-59) 10/24/18 06:30 ALT 80 U/L (7-56) H 10/24/18 06:30 Alkaline Phosphatase 57 U/L (38-126) 10/24/18 06:30 Total Protein 7.8 g/dL (5.8-8.3) 10/24/18 06:30 Albumin 4.4 g/dL (3.0-4.8) 10/24/18 06:30 Globulin 3.4 gm/dL 10/24/18 06:30 Albumin/Globulin Ratio 1.3 (1.1-1.8) 10/24/18 06:30 Lipase 111 U/L (23-300) 10/23/18 13:20 Urine Color Yellow (YELLOW) 10/23/18 15:50 Urine Appearance Clear (CLEAR) 10/23/18 15:50 Urine pH 8.0 (4.7-8.0) 10/23/18 15:50 Ur Specific [place] 1.010 (1.005-1.035) 10/23/18 15:50 Urine Protein Negative mg/dL (<30 mg/dL) 10/23/18 15:50 Urine Glucose (UA) Negative mg/dL (NEGATIVE) 10/23/18 15:50 Urine Ketones 40 mg/dL (NEGATIVE) H 10/23/18 15:50 Urine Blood Negative (NEGATIVE) 10/23/18 15:50 Urine Nitrate Negative (NEGATIVE) 10/23/18 15:50 Urine Bilirubin Negative (NEGATIVE) 10/23/18 15:50 Urine Urobilinogen 0.2 E.U./dL (<1 E.U./dL) 10/23/18 15:50 Ur Leukocyte Esterase Negative Carrie/uL (NEGATIVE) 10/23/18 15:50 Urine Opiates Screen Positive (NEGATIVE) H 10/23/18 15:50 Urine Methadone Screen Negative (NEGATIVE) 10/23/18 15:50 Ur Barbiturates Screen Negative (NEGATIVE) 10/23/18 15:50 Ur Phencyclidine Scrn Negative (NEGATIVE) 10/23/18 15:50 Ur Amphetamines Screen Negative (NEGATIVE) 10/23/18 15:50 U Benzodiazepines Scrn Negative (NEGATIVE) 10/23/18 15:50 U Oth Cocaine Metabols Negative (NEGATIVE) 10/23/18 15:50 U Cannabinoids Screen Negative (NEGATIVE) 10/23/18 15:50 Alcohol, Quantitative < 10 mg/dL (0-10) 10/23/18 13:20 - Hospital Course Hospital Course: Upon Admission: 53M PMH CKD, Nephrolithiasis, gastritis, EtOH abuse, opiate abuse [place] [facility]/ c/o NV + Abd pain x 1 day Patient reported pain began 10/22 PM located diffusely throughout the abdomen w/ radiation into the flank. Pain is described as burning sensation w/ associated Nausea and vomiting. Patient reported that he has not been able to tolerate diet. Could not recall any inciting factor; denies daily EtOH use however admits to drinking 2-3 beers on the weekend. Hospital Course: Pt was admitted for intractable nausea/vomiting and abdominal pain 2/2 ETOH/opiate withdrawal. CTAP revealed b/l nonobstructing nephrolithiasis w/o hydronephrosis. Pt was kept NPO, nausea was treated with zofran and pain treated with morphine. Pt was also treated for ETOH w/d, placed on CIWA protocol, treated with scheduled and prn ativan and banana bag. Upon Discharge: Pt is feeling much better, abdominal pain has resolved. Vital signs/labs are stable. Pt was walked with resident, had normal gait without unsteadiness and no respiratory distress. Pt advised on lifestyle modification, medication compliance and close outpatient followup. Pt advised to attend local AA meeting and smoking cessation. Pt instructed to return to nearest ED if symptoms return or has new symptoms. Discharge Exam - Head Exam Head Exam: ATRAUMATIC, NORMOCEPHALIC - Eye Exam Eye Exam: EOMI, Normal appearance - ENT Exam ENT Exam: Normal Exam - Neck Exam Neck exam: Normal Inspection - Respiratory Exam Respiratory Exam: NORMAL BREATHING PATTERN, UNREMARKABLE - Cardiovascular Exam Cardiovascular Exam: REGULAR RHYTHM, +S1, +S2 - GI/Abdominal Exam GI & Abdominal Exam: Soft. absent: Tenderness - Extremities Exam Extremities exam: normal inspection - Back Exam Back exam: NORMAL INSPECTION - Neurological Exam Neurological exam: Alert, Oriented x3 - Psychiatric Exam Psychiatric exam: Normal Affect, Normal Mood - Skin Skin Exam: Dry, Intact, Warm Discharge Plan - Discharge Medications Prescriptions: Pantoprazole Sodium [Protonix] 40 mg PO DAILY #30 ect - Follow Up Plan Condition: STABLE Disposition: HOME/ ROUTINE Instructions: Alcohol Abuse and Alcoholism (DC), Laser Lithotripsy for Kidney Stones (DC), Acute Abdominal Pain (DC) Additional Instructions: Please follow up with your primary care doctor, Dr. Araiza in 3-5 days Please follow up with your psychiatrist as per your PMD Please follow up with a urologist for evaluation/treatment of your kidney stones Please resume all your home medications You have been started on a new medication: Pantoprazole 40mg. Please take 1 tablet by mouth daily. Please discuss this medication with your primary care doctor. It's extremely important that you stop drinking alcohol or else you run the risk of falling, brain bleeds liver failure and Please stop smoking If your symptoms return, or you experience new symptoms please go to the nearest emergency room <Ofelia Sullivan - Last Filed: 10/25/18 14:47> Provider - Provider Date of Admission: 10/23/18 16:30 Attending physician: Ofelia Sullivan MD Hospital Course - Lab Results Lab Results: Most Recent Lab Values WBC 9.8 10^3/uL (4.5-11.0) D 10/24/18 06:30 RBC 4.34 10^6/uL (3.5-6.1) 10/24/18 06:30 Hgb 14.0 g/dL (14.0-18.0) D 10/24/18 06:30 Hct 41.1 % (42.0-52.0) L 10/24/18 06:30 MCV 94.7 fl (80.0-105.0) 10/24/18 06:30 MCH 32.3 pg (25.0-35.0) 10/24/18 06:30 MCHC 34.1 g/dl (31.0-37.0) 10/24/18 06:30 RDW 12.4 % (11.5-14.5) 10/24/18 06:30 Plt Count 222 10^3/uL (120.0-450.0) 10/24/18 06:30 MPV 10.9 fl (7.0-11.0) 10/24/18 06:30 Neut % (Auto) 76.6 % (50.0-68.0) H 10/24/18 06:30 Lymph % (Auto) 12.4 % (22.0-35.0) L 10/24/18 06:30 [place] % (Auto) 11.0 % (1.0-6.0) H 10/24/18 06:30 Eos % (Auto) 0.0 % (1.5-5.0) L 10/24/18 06:30 Baso % (Auto) 0.0 % (0.0-3.0) 10/24/18 06:30 Lymph # (Auto) 1.2 (1.2-3.4) 10/24/18 06:30 [place] # (Auto) 1.1 (0.1-0.6) H 10/24/18 06:30 Eos # (Auto) 0.0 (0.0-0.7) 10/24/18 06:30 Baso # (Auto) 0.00 K/mm3 (0.0-2.0) 10/24/18 06:30 Absolute Neuts (auto) 7.53 (1.4-6.5) H 10/24/18 06:30 PT 12.1 SECONDS (9.4-12.5) 10/23/18 13:20 INR 1.09 10/23/18 13:20 APTT 27.3 Seconds (26.9-38.3) 10/23/18 13:20 Sodium 137 mmol/L (132-148) 10/24/18 06:30 Potassium 3.6 mmol/L (3.6-5.0) 10/24/18 06:30 Chloride 102 mmol/L (98-107) 10/24/18 06:30 Carbon Dioxide 24 mmol/L (21-33) 10/24/18 06:30 Anion Gap 14 (10-20) 10/24/18 06:30 BUN 15 mg/dL (7-21) 10/24/18 06:30 Creatinine 0.7 mg/dl (0.8-1.5) L 10/24/18 06:30 Est GFR ( Amer) > 60 10/24/18 06:30 Est GFR (Non-Af Amer) > 60 10/24/18 06:30 Random Glucose 111 mg/dL (70-110) H 10/24/18 06:30 Calcium 9.6 mg/dL (8.4-10.5) 10/24/18 06:30 Phosphorus 5.3 mg/dL (2.5-4.5) H 10/24/18 06:30 Magnesium 2.1 mg/dL (1.7-2.2) 10/24/18 06:30 Total Bilirubin 1.0 mg/dL (0.2-1.3) 10/24/18 06:30 Direct Bilirubin 0.1 mg/dL (0.0-0.4) 10/23/18 13:20 AST 50 U/L (17-59) 10/24/18 06:30 ALT 80 U/L (7-56) H 10/24/18 06:30 Alkaline Phosphatase 57 U/L (38-126) 10/24/18 06:30 Total Protein 7.8 g/dL (5.8-8.3) 10/24/18 06:30 Albumin 4.4 g/dL (3.0-4.8) 10/24/18 06:30 Globulin 3.4 gm/dL 10/24/18 06:30 Albumin/Globulin Ratio 1.3 (1.1-1.8) 10/24/18 06:30 Lipase 111 U/L (23-300) 10/23/18 13:20 Urine Color Yellow (YELLOW) 10/23/18 15:50 Urine Appearance Clear (CLEAR) 10/23/18 15:50 Urine pH 8.0 (4.7-8.0) 10/23/18 15:50 Ur Specific [place] 1.010 (1.005-1.035) 10/23/18 15:50 Urine Protein Negative mg/dL (<30 mg/dL) 10/23/18 15:50 Urine Glucose (UA) Negative mg/dL (NEGATIVE) 10/23/18 15:50 Urine Ketones 40 mg/dL (NEGATIVE) H 10/23/18 15:50 Urine Blood Negative (NEGATIVE) 10/23/18 15:50 Urine Nitrate Negative (NEGATIVE) 10/23/18 15:50 Urine Bilirubin Negative (NEGATIVE) 10/23/18 15:50 Urine Urobilinogen 0.2 E.U./dL (<1 E.U./dL) 10/23/18 15:50 Ur Leukocyte Esterase Negative Carrie/uL (NEGATIVE) 10/23/18 15:50 Urine Opiates Screen Positive (NEGATIVE) H 10/23/18 15:50 Urine Methadone Screen Negative (NEGATIVE) 10/23/18 15:50 Ur Barbiturates Screen Negative (NEGATIVE) 10/23/18 15:50 Ur Phencyclidine Scrn Negative (NEGATIVE) 10/23/18 15:50 Ur Amphetamines Screen Negative (NEGATIVE) 10/23/18 15:50 U Benzodiazepines Scrn Negative (NEGATIVE) 10/23/18 15:50 U Oth Cocaine Metabols Negative (NEGATIVE) 10/23/18 15:50 U Cannabinoids Screen Negative (NEGATIVE) 10/23/18 15:50 Alcohol, Quantitative < 10 mg/dL (0-10) 10/23/18 13:20 Attending/Attestation - Attestation I have personally seen and examined this patient.: Yes I have fully participated in the care of the patient.: Yes I have reviewed all pertinent clinical information, including history, physical exam and plan: Yes Notes (Text): Attending note: Patient seen and examined with resident. Denies any fever and chills. denies any chest pain, shortness of breath. Denies any abdominal pain, nausea and vomiting. tolerating diet. ambulating fine. Patient is a 68-year-old male with past medical history significant for CKD, nephrolithiasis, alcohol abuse, and opiate abuse that presented to the emergency room with abdominal pain, nausea, and vomiting. 1. Abdominal pain. Nausea and vomiting. admitted for alcohol withdrawal leading to delirium tremens. CT abd/pelvis showed no acute abdominal pelvic pathology, no evidence of small bowel obstruction, bilateral nonobstructive renal calculi without hydroureteronephrosis or evidence of recently passed genitourinary calculus. currently pain free. tolerating diet. 2. alcohol withdrawal. resolved. treated with Ativan. 3. Hypertension. continue Benzapril/HCTZ. 4. Chronic opiate use for chronic pain. Patient counseled on cessation. complete alcohol cessation is strongly advised. AA meetimg and rehab information given. Discharge home today. Follow up with PMD Dr. Araiza in 3 to 5 days.
[2018-10-25] MEDS ORDERED: Pantoprazole 40 mg EC Tab PO SCH (06:00)
== END 2018-10-24 15:33 | disposition home or self-care (01) ==
LOC: ED 13:40 → ERH 16:30 → 5RNO 18:29 → 2RNO 22:41
PROVIDERS: ADMIT Internal Medicine; ATTEND Internal Medicine
DX: F10.239 Alcohol dependence with withdrawal, unspecified (principal); N20.0 Calculus of kidney; K29.70 Gastritis, unspecified, without bleeding; E78.5 Hyperlipidemia, unspecified; F11.23 Opioid dependence with withdrawal; G89.29 Other chronic pain; I12.9 Hypertensive chronic kidney disease with stage 1 through stage 4 chronic kidney disease, or unspecified chronic kidney disease; N18.9 Chronic kidney disease, unspecified; Z87.442 Personal history of urinary calculi; F17.200 Nicotine dependence, unspecified, uncomplicated
CPT/HCPCS: 36415; 74177; 80053; 80320; 80324; 80345; 80346; 80349; 80353; 80358; 80361; 81003; 82248; 83690; 83735; 83992; 84100; 85025; 85610; 85730; 96360; 96374; 99284; C9113; G0378; J1885; J2060; J2270; J2405; J2765; J3411; J7030; Q9967